=== PATIENT | male | born 1985 | race Caucasian/White ===

== ENCOUNTER 2017-08-21 18:08 | Emergency (ER) | payer OTHER ==
[~2017-08-21] VITALS: Ht 157.5 cm; Wt 67.3 kg
[2017-08-21 18:37] LABS: GLUCOSE,POINT OF CARE 389 MG/DL (70-110)
[2017-08-21] MEDS ORDERED: QUET300T2 PO (18:39)
[2017-08-21] MEDS ORDERED: ONDANSETRON HCL 4 MG/2 ML VIAL IVP ONE (19:00)
[2017-08-21] MEDS ORDERED: SODIUM CHLORIDE 0.9% 2,000 ML IV ONE (19:00)
[2017-08-21] MEDS ORDERED: MORPHINE SULFATE 4 MG/ML SYRINGE IVP ONE (19:30)
[2017-08-21 19:44] LABS: BASOPHILS % (AUTO) 0.7 % (0.0-2.0); EOSINOPHILS % (AUTO) 0.1 % (1.0-6.0); HEMATOCRIT 40.1 % (41-53); HEMOGLOBIN 13.9 g/dL (13.5-17.5); LYMPHOCYTES # (AUTO) 2.2 K/uL (1.0-4.8); LYMPHOCYTES % (AUTO) 46.1 % (22.0-44.0); MEAN CORPUSCULAR HEMOGLOBIN 28.1 pg (26.0-34.0); MEAN CORPUSCULAR HGB CONC 34.6 G/dL (31.0-37.0); MEAN CORPUSCULAR VOLUME 81 fL (80-100); MONOCYTES # (AUTO) 0.2 K/uL (0.1-1.0); MONOCYTES % (AUTO) 5.1 % (2.0-9.0); NEUTROPHILS # (AUTO) 2.2 K/uL (1.8-7.7); PLATELET COUNT (AUTO) 296 K/uL (150-450); RED BLOOD CELL COUNT(AUTO) 4.93 MIL/uL (4.50-5.90); RED CELL DISTRIBUTION WIDTH 17.6 % (11.5-14.5); WHITE BLOOD COUNT (AUTO) 4.7 K/uL (4.5-11.0)
[2017-08-21 19:50] LABS: ANION GAP 13 mmol/L (8-16); CALCIUM, TOTAL 8.6 mg/dL (8.8-10.5); CARBON DIOXIDE 26 mmol/L (22-29); CHLORIDE 100 mmol/L (98-107); CREATININE 0.98 mg/dL (0.60-1.30); GLOMERULAR FILTR. RATE CALC > 60 mL/min (>60); POTASSIUM 3.7 mmol/L (3.5-5.1); SODIUM SERUM 139 mmol/L (136-145); UREA NITROGEN, BLOOD 4 mg/dL (7-18)
[2017-08-21 19:56] LABS: ALANINE AMINOTRANSFERASE 49 U/L (12-78); ALBUMIN 3.8 g/dL (3.4-5.0); ASPARTATE AMINOTRANSFERASE 31 U/L (15-37); BILIRUBIN,TOTAL 0.6 mg/dL (0.1-1.0); TOTAL PROTEIN, SERUM 7.7 g/dL (6.4-8.2)
[2017-08-21 20:00] LABS: RBC MORPHOLOGY COMMENT ABNORMAL RBC MORPH
[2017-08-21 20:21] LABS: VALPROIC ACID < 3 mcg/mL (50-100)
[2017-08-21] MEDS ORDERED: ACETAMINOPHEN 500 MG TABLET PO ONE ×2 (21:30)
[2017-08-21 22:02] VITALS: BP 125/75
== END 2017-08-21 22:33 | disposition home or self-care (01) ==
LOC: EMS 18:10
DX: F10.229 Alcohol dependence with intoxication, unspecified (principal); F15.10 Other stimulant abuse, uncomplicated; F13.20 Sedative, hypnotic or anxiolytic dependence, uncomplicated; R10.9 Unspecified abdominal pain; E11.9 Type 2 diabetes mellitus without complications; F17.210 Nicotine dependence, cigarettes, uncomplicated; Z76.5 Malingerer [conscious simulation]; Z91.14 Patient's other noncompliance with medication regimen; Y90.8 Blood alcohol level of 240 mg/100 ml or more
CPT/HCPCS: 36415; 70450; 80053; 80156; 80164; 80185; 80307; 82962; 83690; 85025; 93005; 96361; 96374; 96375; 99285; G0480; J2270; J2405; J7030

== ENCOUNTER 2019-03-28 15:41 | Emergency (ER) | payer OTHER ==
[~2019-03-28] VITALS: Ht 175.3 cm; Wt 70.5 kg
[~2019-03-28 15:41] MED LIST: QUET300T2 PO
[2019-03-28] MEDS ORDERED: PRAZ1 PO (16:43)
[2019-03-28] MEDS ORDERED: DIVA125T32 PO (16:43)
[2019-03-28] MEDS ORDERED: SODIUM CHLORIDE 0.9% 1,000 ML IV ONE (17:15)
[2019-03-28 17:28] LABS: BASOPHILS % (AUTO) 0.2 % (0.0-2.0); EOSINOPHILS % (AUTO) 0.2 % (1.0-6.0); HEMATOCRIT 46.9 % (41-53); HEMOGLOBIN 15.7 g/dL (13.5-17.5); LYMPHOCYTES # (AUTO) 1.3 K/uL (1.0-4.8); LYMPHOCYTES % (AUTO) 11.4 % (22.0-44.0); MEAN CORPUSCULAR HEMOGLOBIN 28.2 pg (26.0-34.0); MEAN CORPUSCULAR HGB CONC 33.5 G/dL (31.0-37.0); MEAN CORPUSCULAR VOLUME 84 fL (80-100); MONOCYTES # (AUTO) 0.3 K/uL (0.1-1.0); MONOCYTES % (AUTO) 2.5 % (2.0-9.0); NEUTROPHILS # (AUTO) 9.7 K/uL (1.8-7.7); PLATELET COUNT (AUTO) 290 K/uL (150-450); RED BLOOD CELL COUNT(AUTO) 5.56 MIL/uL (4.50-5.90); RED CELL DISTRIBUTION WIDTH 15.5 % (11.5-14.5)
[2019-03-28 17:30] LABS: NEUTROPHILS % (AUTO) 85.7 % (40.0-70.0)
[2019-03-28] MEDS ORDERED: KETOROLAC TROMETHAMINE 30 MG/ML VIAL IVP ONE ×2 (17:30→22:15)
[2019-03-28] MEDS ORDERED: ONDANSETRON HCL 4 MG/2 ML VIAL IVP ONE ×2 (17:30→22:15)
[2019-03-28] MEDS ORDERED: LORazepam 2 MG TABLET PO ONE (17:45)
[2019-03-28 17:54] LABS: ANION GAP 14 mmol/L (8-16); CALCIUM, TOTAL 8.5 mg/dL (8.8-10.5); CARBON DIOXIDE 18 mmol/L (22-29); CHLORIDE 111 mmol/L (98-107); CREATININE 0.84 mg/dL (0.60-1.30); GLOMERULAR FILTR. RATE CALC > 60 mL/min (>60); GLUCOSE,RANDOM 152 mg/dL (70-110); POTASSIUM 3.8 mmol/L (3.5-5.1); SODIUM SERUM 143 mmol/L (136-145); UREA NITROGEN, BLOOD 9 mg/dL (7-18)
[2019-03-28 18:00] LABS: ALANINE AMINOTRANSFERASE 67 U/L (12-78); ALBUMIN 3.6 g/dL (3.4-5.0); ALKALINE PHOSPHATASE 198 U/L (46-116); ASPARTATE AMINOTRANSFERASE 54 U/L (15-37); BILIRUBIN,TOTAL 0.3 mg/dL (0.1-1.0); LIPASE 29 U/L (73-393); TOTAL PROTEIN, SERUM 7.6 g/dL (6.4-8.2)
[2019-03-28] MEDS ORDERED: MORPHINE SULFATE 4 MG/ML SYRINGE IVP ONE (20:15)
[2019-03-28] MEDS ORDERED: OLANZapine 5 MG RAPDIS TABLET PO PRN (20:30)
[2019-03-28] MEDS ORDERED: ZOLPIDEM TARTRATE 10 MG TABLET PO PRN (20:30)
[2019-03-28] MEDS ORDERED: ACETAMINOPHEN 325 MG TABLET PO PRN (20:30)
[2019-03-28] MEDS ORDERED: LORazepam 2 MG TABLET PO PRN (20:30)
[2019-03-28] MEDS ORDERED: LORazepam 2 MG/ML VIAL IVP ONE (22:15)
[2019-03-28] MEDS ORDERED: MAG HYDROX/AL HYDROX/SIMETH ES 30 ML SUSPENSION UDCUP PO ONE (22:15)
[2019-03-28] MEDS ORDERED: FAMOTIDINE 40 MG in SODIUM CHLORIDE 0.9% 100 ML IV ONE (22:15)
[2019-03-28] MEDS ORDERED: HYDROmorphone 2 MG/ML SYRINGE IVP ONE (22:15)
[2019-03-28 22:33] LABS: ANION GAP 15 mmol/L (8-16); CALCIUM, TOTAL 8.3 mg/dL (8.8-10.5); CARBON DIOXIDE 22 mmol/L (22-29); CHLORIDE 106 mmol/L (98-107); CREATININE 1.04 mg/dL (0.60-1.30); GLOMERULAR FILTR. RATE CALC > 60 mL/min (>60); GLUCOSE,RANDOM 329 mg/dL (70-110); POTASSIUM 3.8 mmol/L (3.5-5.1); SODIUM SERUM 143 mmol/L (136-145); UREA NITROGEN, BLOOD 10 mg/dL (7-18)
[2019-03-28 22:35] LABS: LIPASE 33 U/L (73-393)
[2019-03-29 00:30] LABS: GLUCOSE,POINT OF CARE 218 MG/DL (70-110)
[2019-03-29 00:30] LABS: GLUCOSE,POINT OF CARE 241 MG/DL (70-110)
[2019-03-29 00:59] LABS: GLUCOSE,POINT OF CARE 213 MG/DL (70-110)
[2019-03-29 02:19] LABS: GLUCOSE,POINT OF CARE 189 MG/DL (70-110)
[2019-03-29 04:24] LABS: APPEARANCE,URINE CLOUDY (CLEAR); BILIRUBIN,URINE NEGATIVE (NEGATIVE); GLUCOSE, URINE (UA) 500 mg/dL (NEGATIVE); KETONES,URINE NEGATIVE (NEGATIVE); LEUKOCYTE ESTERASE ,URINE SMALL (NEGATIVE); NITRATE,URINE NEGATIVE (NEGATIVE); OCCULT BLOOD,URINE NEGATIVE (NEGATIVE); PROTEIN,URINE TRACE (NEGATIVE); UROBILINOGEN,URINE 0.2 mg/dL (<=1.0)
[2019-03-29 04:29] LABS: AMPHET/METH SCREEN,URINE NEGATIVE (NEGATIVE); BARBITURATE SCREEN, URINE NEGATIVE (NEGATIVE); BENZODIAZEPINES SCREEN,URINE NEGATIVE (NEGATIVE); CANNABINOID SCREEN,URINE NEGATIVE (NEGATIVE); COCAINE SCREEN,URINE NEGATIVE (NEGATIVE); METHADONE SCREEN, URINE NEGATIVE (NEGATIVE); OPIATE SCREEN,URINE POSITIVE (NEGATIVE); PHENCYCLIDINE SCREEN,URINE NEGATIVE (NEGATIVE)
[2019-03-29 04:41] LABS: BACTERIA,URINE None Seen /HPF (None Seen); RBC,URINE 0-2 /HPF (0-2); WBC,URINE 26-50 /HPF (0-5)
[2019-03-29 04:42] LABS: MUCUS,URINE Rare LPF (None Seen); SQUAMOUS EPITHELIAL CELL,UR Rare /LPF (None Seen)
[2019-03-29] MEDS ORDERED: LORazepam 2 MG TABLET PO PRN ×2 (07:00→09:30)
[2019-03-29 07:56] LABS: BASOPHILS % (AUTO) 0.4 % (0.0-2.0); EOSINOPHILS % (AUTO) 1.6 % (1.0-6.0); HEMOGLOBIN 14.4 g/dL (13.5-17.5); LYMPHOCYTES # (AUTO) 1.9 K/uL (1.0-4.8); LYMPHOCYTES % (AUTO) 22.9 % (22.0-44.0); MEAN CORPUSCULAR HEMOGLOBIN 28.2 pg (26.0-34.0); MEAN CORPUSCULAR HGB CONC 33.4 G/dL (31.0-37.0); MEAN CORPUSCULAR VOLUME 84 fL (80-100); MONOCYTES # (AUTO) 0.5 K/uL (0.1-1.0); MONOCYTES % (AUTO) 6.4 % (2.0-9.0); NEUTROPHILS # (AUTO) 5.8 K/uL (1.8-7.7); NEUTROPHILS % (AUTO) 68.7 % (40.0-70.0); PLATELET COUNT (AUTO) 261 K/uL (150-450); RED CELL DISTRIBUTION WIDTH 15.6 % (11.5-14.5)
[2019-03-29 08:30] LABS: HEMOGLOBIN A1C 8.8 % (4.5-6.2)
[2019-03-29 08:42] LABS: ALANINE AMINOTRANSFERASE 126 U/L (12-78); ALBUMIN 3.2 g/dL (3.4-5.0); ALKALINE PHOSPHATASE 232 U/L (46-116); ANION GAP 12 mmol/L (8-16); ASPARTATE AMINOTRANSFERASE 132 U/L (15-37); BILIRUBIN,TOTAL 0.6 mg/dL (0.1-1.0); CALCIUM, TOTAL 8.5 mg/dL (8.8-10.5); CARBON DIOXIDE 21 mmol/L (22-29); CHLORIDE 107 mmol/L (98-107); CHOL/HDL RATIO 1.7 (4.2-7.3); CHOLESTEROL 109 mg/dL (131-200); CREATININE 0.85 mg/dL (0.60-1.30); GLOMERULAR FILTR. RATE CALC > 60 mL/min (>60); GLUCOSE,RANDOM 100 mg/dL (70-110); HDL CHOLESTEROL 66 mg/dL (40-60); LDL CHOL (CALC.) 20 mg/dL (0-130); POTASSIUM 3.5 mmol/L (3.5-5.1); SODIUM SERUM 140 mmol/L (136-145); THYROID STIMULATING HORMONE 1.24 uIU/mL (0.36-3.74); TOTAL PROTEIN, SERUM 6.9 g/dL (6.4-8.2); TRIGLYCERIDES 114 mg/dL (15-150); UREA NITROGEN, BLOOD 11 mg/dL (7-18)
[2019-03-29] MEDS ORDERED: LORazepam 2 MG TABLET PO SCH (09:00)
[2019-03-29] MEDS ORDERED: THIAMINE HCL 100 MG TABLET PO SCH (09:30)
[2019-03-29] MEDS ORDERED: GuaiFENesin/D-METHORPHAN [SUGAR-FREE] 200-20MG/10 ML SYRUP UDCUP PO PRN (09:30)
[2019-03-29] MEDS ORDERED: LOPERAMIDE HCL 2 MG CAPSULE PO PRN (09:30)
[2019-03-29] MEDS ORDERED: FOLIC ACID 1 MG TABLET PO SCH (09:30)
[2019-03-29] MEDS ORDERED: HydrOXYzine PAMOATE 50 MG CAPSULE PO PRN (09:30)
[2019-03-29] MEDS ORDERED: CYANOCOBALAMIN 1,000 MCG/ML VIAL IM ONE (09:30)
[2019-03-29 10:48] LABS: GLUCOSE,POINT OF CARE 119 MG/DL (70-110)
[2019-03-29] MEDS ORDERED: ACETAMINOPHEN 325 MG TABLET PO PRN (11:15)
[2019-03-29] MEDS ORDERED: IBUPROFEN 400 MG TABLET PO PRN (11:15)
[2019-03-29 11:45] LABS: GLUCOSE,POINT OF CARE 118 MG/DL (70-110)
[2019-03-29 12:38] VITALS: BP 129/87
[2019-03-29] MEDS ORDERED: QUEtiapine FUMARATE 300 MG TABLET PO SCH (21:00)
[2019-03-30] MEDS ORDERED: LORazepam 2 MG TABLET PO PRN (07:00)
[2019-03-30] MEDS ORDERED: LORazepam 2 MG TABLET PO SCH (09:00)
[2019-03-30] MEDS ORDERED: BuPROPion HCL XL 150 MG ER TABLET PO SCH (09:00)
[2019-03-30] MEDS ORDERED: MULTIVITAMINS WITH MINERALS, THERAPEUTIC TABLET PO SCH (09:00)
[2019-03-31] MEDS ORDERED: LORazepam 1 MG TABLET PO PRN (07:00)
[2019-03-31] MEDS ORDERED: LORazepam 1 MG TABLET PO SCH (09:00)
[2019-04-01] MEDS ORDERED: LORazepam 1 MG TABLET PO PRN ×2 (07:00)
[2019-04-01] MEDS ORDERED: LORazepam 1 MG TABLET PO SCH (09:00)
[2019-04-02] MEDS ORDERED: LORazepam 1 MG TABLET PO PRN (07:00)
== END 2019-03-29 13:00 | disposition left against medical advice (07) ==
LOC: EMS 15:42
DX: F33.2 Major depressive disorder, recurrent severe without psychotic features (principal); F10.229 Alcohol dependence with intoxication, unspecified; K86.1 Other chronic pancreatitis; E10.9 Type 1 diabetes mellitus without complications; F20.9 Schizophrenia, unspecified; F17.210 Nicotine dependence, cigarettes, uncomplicated; Y90.8 Blood alcohol level of 240 mg/100 ml or more
CPT/HCPCS: 36415; 80048; 80053; 80061; 80307; 81001; 82962; 83036; 83690; 84443; 85025; 87077; 87086; 87186; 96361; 96372; 96374; 96375; 96376; 99284; G0480; J1170; J1885; J2060; J2270; J2405; J3420; J3490; J7030; J7050

== ENCOUNTER 2019-03-29 23:41 | Emergency (ER) | payer OTHER ==
[~2019-03-29] VITALS: Ht 157.5 cm; Wt 64.5 kg
[~2019-03-29 23:41] MED LIST changes: +DIVA125T32 PO; +PRAZ1 PO
[2019-03-29 23:59] LABS: GLUCOSE,POINT OF CARE 176 MG/DL (70-110)
[2019-03-30 01:15] LABS: BASOPHILS % (AUTO) 0.4 % (0.0-2.0); EOSINOPHILS % (AUTO) 1.4 % (1.0-6.0); HEMATOCRIT 47.4 % (41-53); HEMOGLOBIN 16.1 g/dL (13.5-17.5); LYMPHOCYTES # (AUTO) 2.1 K/uL (1.0-4.8); LYMPHOCYTES % (AUTO) 39.1 % (22.0-44.0); MEAN CORPUSCULAR HEMOGLOBIN 28.5 pg (26.0-34.0); MEAN CORPUSCULAR VOLUME 84 fL (80-100); MONOCYTES # (AUTO) 0.3 K/uL (0.1-1.0); MONOCYTES % (AUTO) 5.1 % (2.0-9.0); NEUTROPHILS # (AUTO) 2.8 K/uL (1.8-7.7); PLATELET COUNT (AUTO) 242 K/uL (150-450); RED BLOOD CELL COUNT(AUTO) 5.66 MIL/uL (4.50-5.90); RED CELL DISTRIBUTION WIDTH 15.5 % (11.5-14.5)
[2019-03-30 01:16] LABS: ANION GAP 13 mmol/L (8-16); CALCIUM, TOTAL 8.7 mg/dL (8.8-10.5); CARBON DIOXIDE 23 mmol/L (22-29); CHLORIDE 109 mmol/L (98-107); CREATININE 0.81 mg/dL (0.60-1.30); GLOMERULAR FILTR. RATE CALC > 60 mL/min (>60); GLUCOSE,RANDOM 185 mg/dL (70-110); POTASSIUM 3.7 mmol/L (3.5-5.1); SODIUM SERUM 145 mmol/L (136-145); UREA NITROGEN, BLOOD 9 mg/dL (7-18)
[2019-03-30 01:19] LABS: GLUCOSE,POINT OF CARE 164 MG/DL (70-110)
[2019-03-30 01:22] LABS: ALANINE AMINOTRANSFERASE 103 U/L (12-78); ALBUMIN 3.6 g/dL (3.4-5.0); ALKALINE PHOSPHATASE 243 U/L (46-116); ASPARTATE AMINOTRANSFERASE 63 U/L (15-37); BILIRUBIN,TOTAL 0.5 mg/dL (0.1-1.0); TOTAL PROTEIN, SERUM 7.8 g/dL (6.4-8.2)
[2019-03-30] MEDS ORDERED: FAMOTIDINE 20 MG TABLET PO ONE (07:45)
[2019-03-30 07:48] LABS: AMPHET/METH SCREEN,URINE NEGATIVE (NEGATIVE); BARBITURATE SCREEN, URINE NEGATIVE (NEGATIVE); BENZODIAZEPINES SCREEN,URINE NEGATIVE (NEGATIVE); CANNABINOID SCREEN,URINE NEGATIVE (NEGATIVE); COCAINE SCREEN,URINE NEGATIVE (NEGATIVE); METHADONE SCREEN, URINE NEGATIVE (NEGATIVE); OPIATE SCREEN,URINE NEGATIVE (NEGATIVE); PHENCYCLIDINE SCREEN,URINE NEGATIVE (NEGATIVE)
[2019-03-30] MEDS ORDERED: KETOROLAC TROMETHAMINE 60 MG/2 ML VIAL IM ONE (08:15)
[2019-03-30 08:36] VITALS: BP 124/69
== END 2019-03-30 08:38 | disposition home or self-care (01) ==
LOC: EMS 23:44
DX: F32.9 Major depressive disorder, single episode, unspecified (principal); F10.129 Alcohol abuse with intoxication, unspecified; F31.9 Bipolar disorder, unspecified; F20.9 Schizophrenia, unspecified; E11.9 Type 2 diabetes mellitus without complications; F17.210 Nicotine dependence, cigarettes, uncomplicated; Z90.49 Acquired absence of other specified parts of digestive tract; Y90.8 Blood alcohol level of 240 mg/100 ml or more
CPT/HCPCS: 36415; 80053; 80307; 82962; 85025; 96372; 99284; G0480; J1885

== ENCOUNTER 2019-04-22 10:50 | Inpatient (IN) | payer OTHER ==
[~2019-04-22] VITALS: Ht 160 cm; Wt 61.4 kg
[2019-04-22 11:03] LABS: GLUCOSE,POINT OF CARE 439 MG/DL (70-110)
[2019-04-22] MEDS ORDERED: INSLAN SQ (11:09)
[2019-04-22] MEDS ORDERED: INSNOV SQ (11:09)
[2019-04-22] MEDS ORDERED: SODIUM CHLORIDE 0.9% 1,000 ML IV ONE (11:45)
[2019-04-22 12:01] LABS: BASOPHILS % (AUTO) 0.6 % (0.0-2.0); EOSINOPHILS % (AUTO) 0.2 % (1.0-6.0); HEMATOCRIT 41.8 % (41-53); HEMOGLOBIN 14.1 g/dL (13.5-17.5); LYMPHOCYTES # (AUTO) 1.6 K/uL (1.0-4.8); MEAN CORPUSCULAR HEMOGLOBIN 28.3 pg (26.0-34.0); MEAN CORPUSCULAR HGB CONC 33.6 G/dL (31.0-37.0); MEAN CORPUSCULAR VOLUME 84 fL (80-100); MONOCYTES # (AUTO) 0.2 K/uL (0.1-1.0); MONOCYTES % (AUTO) 4.7 % (2.0-9.0); NEUTROPHILS # (AUTO) 2.5 K/uL (1.8-7.7); NEUTROPHILS % (AUTO) 58.5 % (40.0-70.0); PLATELET COUNT (AUTO) 140 K/uL (150-450); RED BLOOD CELL COUNT(AUTO) 4.97 MIL/uL (4.50-5.90); RED CELL DISTRIBUTION WIDTH 14.7 % (11.5-14.5)
[2019-04-22 12:13] LABS: PROTHROMBIN TIME 10.2 SEC (9.4-11.6)
[2019-04-22 12:25] LABS: ALANINE AMINOTRANSFERASE 172 U/L (12-78); ALBUMIN 3.6 g/dL (3.4-5.0); ALKALINE PHOSPHATASE 537 U/L (46-116); ANION GAP 12 mmol/L (8-16); ASPARTATE AMINOTRANSFERASE 272 U/L (15-37); BILIRUBIN,TOTAL 0.7 mg/dL (0.1-1.0); CALCIUM, TOTAL 8.7 mg/dL (8.8-10.5); CARBON DIOXIDE 30 mmol/L (22-29); CHLORIDE 93 mmol/L (98-107); CREATININE 1.04 mg/dL (0.60-1.30); GLOMERULAR FILTR. RATE CALC > 60 mL/min (>60); GLUCOSE,RANDOM 382 mg/dL (70-110); LIPASE 66 U/L (73-393); SODIUM SERUM 135 mmol/L (136-145); TOTAL PROTEIN, SERUM 7.3 g/dL (6.4-8.2); UREA NITROGEN, BLOOD 4 mg/dL (7-18)
[2019-04-22 12:35] LABS: POTASSIUM 2.7 mmol/L (3.5-5.1)
[2019-04-22 12:35] LABS: ABG A-A DIFF O2 17.3 mmHg (10-20.0); ABG BASE EXCESS 1.3 mmol/L (-2.0-3.0); ABG CARBOXYHEMOGLOBIN 0.9 % (0.0-1.5); ABG HCO3 26.1 mmol/L (22.0-26.0); ABG METHEMOGLOBIN 0.3 % (0.0-1.5); ABG OXYGEN CONTENT 19.2 mL/dL (15.0-23.0); ABG OXYGEN SATURATION 97.5 % (95.0-98.0); ABG OXYHEMOGLOBIN 96.3 % (94.0-100.0); ABG PCO2 33 mmHg (35-45); ABG PH 7.492 (7.350-7.450); ABG TOTAL HEMOGLOBIN 14.1 G/dL (12.0-18.0); PO2, ARTERIAL BG 93.3 mmHg (92.0-100.0); SOURCE, BLOOD GAS ARTERIAL; TEMPERATURE, FAHRENHEIT, BG 97.5 FAHREN (96.0-98.6)
[2019-04-22 12:36] LABS: SITE, BLOOD GAS RT RADIAL
[2019-04-22] MEDS: POTASSIUM CHL 10 MEQ/WATER 50 ML IV SCH ×4 (12:52→16:55)
[2019-04-22] MEDS ORDERED: ONDANSETRON HCL 4 MG/2 ML VIAL IVP ONE (13:15)
[2019-04-22] MEDS ORDERED: KETOROLAC TROMETHAMINE 30 MG/ML VIAL IVP ONE (13:15)
[2019-04-22 13:35] LABS: APPEARANCE,URINE CLEAR (CLEAR); BILIRUBIN,URINE NEGATIVE (NEGATIVE); GLUCOSE, URINE (UA) >=1000 mg/dL (NEGATIVE); KETONES,URINE 15 mg/dL (NEGATIVE); LEUKOCYTE ESTERASE ,URINE NEGATIVE (NEGATIVE); NITRATE,URINE NEGATIVE (NEGATIVE); OCCULT BLOOD,URINE NEGATIVE (NEGATIVE); PH,URINE 7.5 (5.0-8.0); PROTEIN,URINE NEGATIVE (NEGATIVE)
[2019-04-22 13:40] LABS: AMPHET/METH SCREEN,URINE NEGATIVE (NEGATIVE); BARBITURATE SCREEN, URINE NEGATIVE (NEGATIVE); BENZODIAZEPINES SCREEN,URINE NEGATIVE (NEGATIVE); CANNABINOID SCREEN,URINE NEGATIVE (NEGATIVE); COCAINE SCREEN,URINE NEGATIVE (NEGATIVE); METHADONE SCREEN, URINE NEGATIVE (NEGATIVE); OPIATE SCREEN,URINE NEGATIVE (NEGATIVE)
[2019-04-22 13:41] LABS: PHENCYCLIDINE SCREEN,URINE NEGATIVE (NEGATIVE)
[2019-04-22 13:45] LABS: BACTERIA,URINE None Seen /HPF (None Seen); RBC,URINE None Seen /HPF (0-2); SQUAMOUS EPITHELIAL CELL,UR Rare /LPF (None Seen); WBC,URINE 0-2 /HPF (0-5)
[2019-04-22] MEDS ORDERED: INSULIN REGULAR, HUMAN 100 UNITS/ML IVP ONE (13:45)
[2019-04-22] MEDS ORDERED: 0.9% SODIUM CHLORIDE 10 ML SYRINGE IVP PRN (13:45)
[2019-04-22] MEDS ORDERED: ACETAMINOPHEN 325 MG TABLET PO PRN ×2 (13:45→16:00)
[2019-04-22] MEDS ORDERED: LORazepam 2 MG/ML VIAL IVP ONE (13:45)
[2019-04-22] MEDS ORDERED: ONDANSETRON HCL 4 MG/2 ML VIAL IVP PRN ×3 (13:45→16:15)
[2019-04-22] MEDS ORDERED: SODIUM CHLORIDE 0.9% 250 ML IV ONE (14:56)
[2019-04-22 15:14] LABS: GLUCOSE,POINT OF CARE 264 MG/DL (70-110)
[2019-04-22] MEDS ORDERED: IOVERSOL 350 MG/ML 100 ML VIAL ONE (15:48)
[2019-04-22] MEDS ORDERED: MAGNESIUM SULFATE 2 GM, MVI, ADULT NO.1 WITH VIT K 10 ML, THIAMINE HCL 100 MG, FOLIC AC... IV ONE ×5 (16:00)
[2019-04-22] MEDS ORDERED: MAGNESIUM HYDROXIDE SUSPENSION 30 ML UDCUP PO PRN (16:00)
[2019-04-22] MEDS ORDERED: BISACODYL 10 MG RECTAL RECTAL SUPPOSITORY PR PRN (16:00)
[2019-04-22] MEDS ORDERED: ZOLPIDEM TARTRATE 5 MG TABLET PO PRN (16:00)
[2019-04-22] MEDS ORDERED: DEXTROSE 50%-WATER 25 GM/50 ML SYRINGE IVP PRN (16:15)
[2019-04-22] MEDS: HEPARIN SODIUM,PORCINE 5,000 UNITS/ML VIAL SQ SCH ×2 (18:42→23:47)
[2019-04-22] MEDS: INSULIN LISPRO 100 UNITS/ML SQ PRN ×2 (18:44→22:20)
[2019-04-22 18:46] VITALS: BP 110/76
[2019-04-22] MEDS: MORPHINE SULFATE 2 MG/ML SYRINGE IVP PRN ×2 (18:47→23:48)
[2019-04-22 20:59] LABS: GLUCOMETER DEV NAME(LOC) 5S.1; GLUCOSE,POINT OF CARE 183 MG/DL (70-110)
[2019-04-22] MEDS ORDERED: POTASSIUM CHLORIDE 20 MEQ ER TABLET PO PRN (21:30)
[2019-04-22] MEDS: INSULIN GLARGINE,HUM.REC.ANLOG 100 UNITS/ML SQ SCH (22:19)
[2019-04-22] MEDS: QUEtiapine FUMARATE 300 MG TABLET PO SCH (22:20)
[2019-04-22] MEDS: DOCUSATE SODIUM 100 MG CAPSULE PO SCH (22:20)
[2019-04-22] MEDS: POTASSIUM CHL 10 MEQ/WATER 50 ML IV PRN ×2 (22:21→23:48)
[2019-04-22 23:02] VITALS: BP 135/83
[2019-04-23] MEDS: POTASSIUM CHL 10 MEQ/WATER 50 ML IV PRN ×6 (01:28→13:15)
[2019-04-23 02:39] LABS: GLUCOMETER DEV NAME(LOC) 5S.1; GLUCOSE,POINT OF CARE 283 MG/DL (70-110)
[2019-04-23] MEDS: HYDROCODONE/ACETAMINOPHEN 5-325 MG TABLET PO PRN ×3 (02:50→16:17)
[2019-04-23 03:55] VITALS: BP 139/88
[2019-04-23] MEDS: MORPHINE SULFATE 2 MG/ML SYRINGE IVP PRN ×4 (04:05→22:29)
[2019-04-23 05:30] LABS: BASOPHILS % (AUTO) 0.8 % (0.0-2.0); EOSINOPHILS % (AUTO) 0.6 % (1.0-6.0); HEMATOCRIT 35.3 % (41-53); HEMOGLOBIN 11.9 g/dL (13.5-17.5); LYMPHOCYTES # (AUTO) 1.9 K/uL (1.0-4.8); LYMPHOCYTES % (AUTO) 31.3 % (22.0-44.0); MEAN CORPUSCULAR HEMOGLOBIN 28.5 pg (26.0-34.0); MEAN CORPUSCULAR HGB CONC 33.7 G/dL (31.0-37.0); MEAN CORPUSCULAR VOLUME 85 fL (80-100); MONOCYTES # (AUTO) 0.3 K/uL (0.1-1.0); MONOCYTES % (AUTO) 4.4 % (2.0-9.0); NEUTROPHILS # (AUTO) 3.7 K/uL (1.8-7.7); NEUTROPHILS % (AUTO) 62.9 % (40.0-70.0); PLATELET COUNT (AUTO) 110 K/uL (150-450); RED BLOOD CELL COUNT(AUTO) 4.16 MIL/uL (4.50-5.90); RED CELL DISTRIBUTION WIDTH 14.7 % (11.5-14.5)
[2019-04-23 05:47] LABS: ALANINE AMINOTRANSFERASE 132 U/L (12-78); ALKALINE PHOSPHATASE 429 U/L (46-116); ANION GAP 11 mmol/L (8-16); ASPARTATE AMINOTRANSFERASE 159 U/L (15-37); CALCIUM, TOTAL 8.4 mg/dL (8.8-10.5); CARBON DIOXIDE 28 mmol/L (22-29); CHLORIDE 97 mmol/L (98-107); CREATININE 0.86 mg/dL (0.60-1.30); GLOMERULAR FILTR. RATE CALC > 60 mL/min (>60); GLUCOSE,RANDOM 83 mg/dL (70-110); SODIUM SERUM 136 mmol/L (136-145); UREA NITROGEN, BLOOD 3 mg/dL (7-18)
[2019-04-23 06:23] LABS: POTASSIUM 2.8 mmol/L (3.5-5.1)
[2019-04-23 07:41] VITALS: BP 150/91
[2019-04-23] MEDS: PANTOPRAZOLE SODIUM 40 MG DR TABLET PO SCH (08:00)
[2019-04-23] MEDS: DOCUSATE SODIUM 100 MG CAPSULE PO SCH ×2 (08:01→19:58)
[2019-04-23] MEDS: HEPARIN SODIUM,PORCINE 5,000 UNITS/ML VIAL SQ SCH ×2 (08:01→16:18)
[2019-04-23] MEDS: QUEtiapine FUMARATE 300 MG TABLET PO SCH ×2 (08:01→19:58)
[2019-04-23] MEDS: PRAZOSIN HCL 1 MG CAPSULE PO SCH (08:01)
[2019-04-23] MEDS ORDERED: MAGNESIUM SULFATE 2 GM, MVI, ADULT NO.1 WITH VIT K 10 ML, THIAMINE HCL 100 MG, FOLIC AC... IV ONE ×5 (10:45)
[2019-04-23] MEDS: LORazepam 2 MG/ML VIAL IM PRN (10:55)
[2019-04-23 11:16] VITALS: BP 129/97
[2019-04-23 11:21] LABS: GLUCOMETER DEV NAME(LOC) 5N.1; GLUCOSE,POINT OF CARE 68 MG/DL (70-110)
[2019-04-23 11:21] LABS: GLUCOMETER DEV NAME(LOC) 5N.1; GLUCOSE,POINT OF CARE 77 MG/DL (70-110)
[2019-04-23 12:19] LABS: GLUCOMETER DEV NAME(LOC) 5S.1; GLUCOSE,POINT OF CARE 149 MG/DL (70-110)
[2019-04-23 15:07] VITALS: BP 146/95
[2019-04-23 19:28] VITALS: BP 134/82
[2019-04-23] MEDS: INSULIN GLARGINE,HUM.REC.ANLOG 100 UNITS/ML SQ SCH (20:40)
[2019-04-23 20:54] LABS: GLUCOMETER DEV NAME(LOC) 5N.2; GLUCOSE,POINT OF CARE 84 MG/DL (70-110)
[2019-04-24 00:02] VITALS: BP 141/91
[2019-04-24] MEDS: MORPHINE SULFATE 2 MG/ML SYRINGE IVP PRN ×2 (02:31→06:55)
[2019-04-24 04:40] VITALS: BP 136/78
[2019-04-24 05:29] LABS: BASOPHILS % (AUTO) 0.6 % (0.0-2.0); EOSINOPHILS % (AUTO) 1.5 % (1.0-6.0); HEMATOCRIT 36.6 % (41-53); HEMOGLOBIN 12.4 g/dL (13.5-17.5); LYMPHOCYTES # (AUTO) 1.2 K/uL (1.0-4.8); LYMPHOCYTES % (AUTO) 25.4 % (22.0-44.0); MEAN CORPUSCULAR HEMOGLOBIN 28.8 pg (26.0-34.0); MEAN CORPUSCULAR HGB CONC 33.9 G/dL (31.0-37.0); MEAN CORPUSCULAR VOLUME 85 fL (80-100); MONOCYTES # (AUTO) 0.3 K/uL (0.1-1.0); MONOCYTES % (AUTO) 6.4 % (2.0-9.0); NEUTROPHILS # (AUTO) 3.1 K/uL (1.8-7.7); NEUTROPHILS % (AUTO) 66.1 % (40.0-70.0); PLATELET COUNT (AUTO) 137 K/uL (150-450); RED BLOOD CELL COUNT(AUTO) 4.32 MIL/uL (4.50-5.90); RED CELL DISTRIBUTION WIDTH 14.9 % (11.5-14.5)
[2019-04-24] MEDS: HYDROCODONE/ACETAMINOPHEN 5-325 MG TABLET PO PRN (05:39)
[2019-04-24 06:45] LABS: GLUCOMETER DEV NAME(LOC) 5N.1; GLUCOSE,POINT OF CARE 126 MG/DL (70-110)
[2019-04-24 07:49] LABS: GLUCOMETER DEV NAME(LOC) 5S.1; GLUCOSE,POINT OF CARE 189 MG/DL (70-110)
[2019-04-24 07:54] VITALS: BP 135/95
[2019-04-24] MEDS: HEPARIN SODIUM,PORCINE 5,000 UNITS/ML VIAL SQ SCH ×2 (08:25)
[2019-04-24] MEDS: DOCUSATE SODIUM 100 MG CAPSULE PO SCH (08:26)
[2019-04-24] MEDS: PRAZOSIN HCL 1 MG CAPSULE PO SCH (08:26)
[2019-04-24] MEDS: PANTOPRAZOLE SODIUM 40 MG DR TABLET PO SCH (08:27)
[2019-04-24] MEDS: QUEtiapine FUMARATE 300 MG TABLET PO SCH (08:27)
[2019-04-24] MEDS: LORazepam 2 MG/ML VIAL IM PRN (09:15)
== END 2019-04-24 11:00 | disposition home or self-care (01) | DRG 241 ==
LOC: EMS 10:54 → 5N 16:03
PROVIDERS: ADMIT Internal Medicine; ATTEND Internal Medicine
DX: K29.20 Alcoholic gastritis without bleeding (principal); K85.20 Alcohol induced acute pancreatitis without necrosis or infection; E10.65 Type 1 diabetes mellitus with hyperglycemia; E87.1 Hypo-osmolality and hyponatremia; E87.6 Hypokalemia; Z79.4 Long term (current) use of insulin; F20.9 Schizophrenia, unspecified; F43.10 Post-traumatic stress disorder, unspecified; Z90.49 Acquired absence of other specified parts of digestive tract; Z96.649 Presence of unspecified artificial hip joint; Z72.89 Other problems related to lifestyle
CPT/HCPCS: 74177; 82805; 84132; 93005; G0378; G0480; J1644; J1815; J1885; J2060; J2270; J2405; J3411; J3475; J3480; J3490; J7030; J7050

== ENCOUNTER 2019-05-02 18:21 | Inpatient (IN) | payer MEDICAID ==
[~2019-05-02] VITALS: Ht 157.5 cm; Wt 65.8 kg
[~2019-05-02 18:21] MED LIST changes: +INSLAN SQ; +INSNOV SQ
[2019-05-02 18:51] VITALS: BP 139/87
[2019-05-02] MEDS ORDERED: MAG HYDROX/AL HYDROX/SIMETH ES 30 ML SUSPENSION UDCUP PO PRN (20:15)
[2019-05-02] MEDS ORDERED: DEXTROSE 50%-WATER 25 GM/50 ML SYRINGE IVP PRN (20:15)
[2019-05-02] MEDS ORDERED: PETROLATUM,WHITE 28 GM JELLY TP PRN (20:15)
[2019-05-02] MEDS: TraZODone HCL 100 MG TABLET PO SCH (20:15)
[2019-05-02] MEDS ORDERED: CloNIDine HCL 0.1 MG TABLET PO PRN (20:15)
[2019-05-02] MEDS ORDERED: ONDANSETRON HCL 4 MG TABLET PO PRN (20:15)
[2019-05-02] MEDS ORDERED: ALBUTEROL SULFATE HFA 90 MCG/PUFF 8 GM INHALER IH PRN (20:15)
[2019-05-02] MEDS ORDERED: NICOTINE 14 MG/24 HOUR PATCH TD PRN (20:15)
[2019-05-02] MEDS ORDERED: GuaiFENesin/D-METHORPHAN [SUGAR-FREE] 200-20MG/10 ML SYRUP UDCUP PO PRN (20:15)
[2019-05-02] MEDS ORDERED: ACETAMINOPHEN 325 MG TABLET PO PRN (20:15)
[2019-05-02] MEDS ORDERED: IBUPROFEN 400 MG TABLET PO PRN (20:15)
[2019-05-02] MEDS: QUEtiapine FUMARATE 300 MG TABLET PO SCH (20:15)
[2019-05-02] MEDS ORDERED: LOPERAMIDE HCL 2 MG CAPSULE PO PRN (20:15)
[2019-05-02] MEDS ORDERED: MAGNESIUM HYDROXIDE SUSPENSION 30 ML UDCUP PO PRN (20:15)
[2019-05-02 20:34] LABS: GLUCOMETER DEV NAME(LOC) 3E.I; GLUCOSE,POINT OF CARE 318 MG/DL (70-110)
[2019-05-02] MEDS: BusPIRone HCL 10 MG TABLET PO SCH (21:15)
[2019-05-02] MEDS: INSULIN LISPRO 100 UNITS/ML SQ PRN (21:16)
[2019-05-03 03:09] VITALS: BP 122/73
[2019-05-03 05:35] LABS: GLUCOMETER DEV NAME(LOC) 3E.I; GLUCOSE,POINT OF CARE 219 MG/DL (70-110)
[2019-05-03] MEDS ORDERED: TraMADol HCL 50 MG TABLET PO PRN (06:15)
[2019-05-03] MEDS: MetFORMIN HCL 850 MG TABLET PO SCH ×2 (06:43→17:30)
[2019-05-03] MEDS: INSULIN LISPRO 100 UNITS/ML SQ PRN ×4 (06:44→21:23)
[2019-05-03 08:08] VITALS: BP 120/78
[2019-05-03] MEDS: MULTIVITAMINS WITH MINERALS, THERAPEUTIC TABLET PO SCH (08:33)
[2019-05-03] MEDS: BusPIRone HCL 10 MG TABLET PO SCH ×3 (08:34→17:30)
[2019-05-03] MEDS: DOCUSATE SODIUM 100 MG CAPSULE PO SCH ×2 (08:34→17:29)
[2019-05-03] MEDS: LevETIRAcetam 250 MG TABLET PO SCH ×2 (08:34→17:29)
[2019-05-03] MEDS: FAMOTIDINE 20 MG TABLET PO SCH (08:34)
[2019-05-03] MEDS: QUEtiapine FUMARATE 300 MG TABLET PO SCH ×2 (08:44→20:52)
[2019-05-03] MEDS: INSULIN GLARGINE,HUM.REC.ANLOG 100 UNITS/ML SQ SCH ×2 (08:46→17:02)
[2019-05-03] MEDS: LORazepam 2 MG TABLET PO PRN ×2 (09:06→20:13)
[2019-05-03 11:29] LABS: GLUCOMETER DEV NAME(LOC) 3E.I; GLUCOSE,POINT OF CARE 267 MG/DL (70-110)
[2019-05-03 16:12] VITALS: BP 115/70
[2019-05-03 16:45] LABS: GLUCOMETER DEV NAME(LOC) 3E.I; GLUCOSE,POINT OF CARE 322 MG/DL (70-110)
[2019-05-03 20:11] VITALS: BP 120/87
[2019-05-03] MEDS: TraZODone HCL 100 MG TABLET PO SCH (20:52)
[2019-05-03 21:29] LABS: GLUCOMETER DEV NAME(LOC) 3E.I; GLUCOSE,POINT OF CARE 249 MG/DL (70-110)
[2019-05-04 05:39] LABS: GLUCOMETER DEV NAME(LOC) 3E.I; GLUCOSE,POINT OF CARE 203 MG/DL (70-110)
[2019-05-04] MEDS: INSULIN LISPRO 100 UNITS/ML SQ PRN ×4 (06:42→21:15)
[2019-05-04] MEDS: MetFORMIN HCL 850 MG TABLET PO SCH ×2 (06:42→17:12)
[2019-05-04] MEDS: LevETIRAcetam 250 MG TABLET PO SCH ×2 (08:03→17:12)
[2019-05-04] MEDS: BusPIRone HCL 10 MG TABLET PO SCH ×3 (08:03→17:12)
[2019-05-04] MEDS: QUEtiapine FUMARATE 300 MG TABLET PO SCH ×2 (08:03→20:41)
[2019-05-04] MEDS: FAMOTIDINE 20 MG TABLET PO SCH (08:03)
[2019-05-04] MEDS: DOCUSATE SODIUM 100 MG CAPSULE PO SCH ×2 (08:03→17:12)
[2019-05-04] MEDS: MULTIVITAMINS WITH MINERALS, THERAPEUTIC TABLET PO SCH (08:03)
[2019-05-04] MEDS: LORazepam 2 MG TABLET PO PRN ×3 (08:10→21:14)
[2019-05-04] MEDS: INSULIN GLARGINE,HUM.REC.ANLOG 100 UNITS/ML SQ SCH ×2 (08:57→17:19)
[2019-05-04 11:24] LABS: GLUCOMETER DEV NAME(LOC) 3E.I; GLUCOSE,POINT OF CARE 183 MG/DL (70-110)
[2019-05-04 12:42] VITALS: BP 150/89
[2019-05-04 16:55] VITALS: BP 120/77
[2019-05-04 17:34] LABS: GLUCOMETER DEV NAME(LOC) 3E.I; GLUCOSE,POINT OF CARE 282 MG/DL (70-110)
[2019-05-04] MEDS: TraZODone HCL 100 MG TABLET PO SCH (20:41)
[2019-05-04 20:54] LABS: GLUCOMETER DEV NAME(LOC) 3E.I; GLUCOSE,POINT OF CARE 278 MG/DL (70-110)
[2019-05-05 05:29] LABS: GLUCOMETER DEV NAME(LOC) 3E.I; GLUCOSE,POINT OF CARE 201 MG/DL (70-110)
[2019-05-05] MEDS: MetFORMIN HCL 850 MG TABLET PO SCH ×2 (07:01→16:14)
[2019-05-05] MEDS: INSULIN LISPRO 100 UNITS/ML SQ PRN ×4 (07:13→20:14)
[2019-05-05] MEDS: DOCUSATE SODIUM 100 MG CAPSULE PO SCH ×2 (07:54→16:18)
[2019-05-05] MEDS: MULTIVITAMINS WITH MINERALS, THERAPEUTIC TABLET PO SCH (07:54)
[2019-05-05] MEDS: LORazepam 2 MG TABLET PO PRN ×3 (07:54→20:16)
[2019-05-05] MEDS: QUEtiapine FUMARATE 300 MG TABLET PO SCH ×2 (07:55→20:08)
[2019-05-05] MEDS: FAMOTIDINE 20 MG TABLET PO SCH (07:55)
[2019-05-05] MEDS: BusPIRone HCL 10 MG TABLET PO SCH ×3 (07:55→16:15)
[2019-05-05] MEDS: LevETIRAcetam 250 MG TABLET PO SCH ×2 (07:56→16:15)
[2019-05-05 08:05] VITALS: BP 119/79
[2019-05-05] MEDS: INSULIN GLARGINE,HUM.REC.ANLOG 100 UNITS/ML SQ SCH ×2 (08:47→16:33)
[2019-05-05 11:33] LABS: GLUCOMETER DEV NAME(LOC) 3E.I; GLUCOSE,POINT OF CARE 244 MG/DL (70-110)
[2019-05-05 16:24] LABS: GLUCOMETER DEV NAME(LOC) 3E.I; GLUCOSE,POINT OF CARE 245 MG/DL (70-110)
[2019-05-05 16:32] VITALS: BP 124/85
[2019-05-05] MEDS: TraZODone HCL 100 MG TABLET PO SCH (20:08)
[2019-05-05 20:19] LABS: GLUCOMETER DEV NAME(LOC) 3E.I; GLUCOSE,POINT OF CARE 290 MG/DL (70-110)
[2019-05-06 05:39] LABS: GLUCOMETER DEV NAME(LOC) 3E.I; GLUCOSE,POINT OF CARE 189 MG/DL (70-110)
[2019-05-06] MEDS: METHOCARBAMOL 500 MG TABLET PO SCH ×2 (06:57→17:03)
[2019-05-06] MEDS: INSULIN LISPRO 100 UNITS/ML SQ PRN ×4 (06:58→21:04)
[2019-05-06 08:00] VITALS: BP 108/73
[2019-05-06] MEDS: LORazepam 2 MG TABLET PO PRN ×3 (08:02→20:48)
[2019-05-06] MEDS: BusPIRone HCL 10 MG TABLET PO SCH ×3 (08:02→17:04)
[2019-05-06] MEDS: LevETIRAcetam 250 MG TABLET PO SCH ×2 (08:02→17:03)
[2019-05-06] MEDS: FAMOTIDINE 20 MG TABLET PO SCH (08:03)
[2019-05-06] MEDS: QUEtiapine FUMARATE 300 MG TABLET PO SCH ×2 (08:03→20:59)
[2019-05-06] MEDS: MULTIVITAMINS WITH MINERALS, THERAPEUTIC TABLET PO SCH (08:04)
[2019-05-06] MEDS: INSULIN GLARGINE,HUM.REC.ANLOG 100 UNITS/ML SQ SCH ×2 (08:11→17:07)
[2019-05-06] MEDS: DOCUSATE SODIUM 100 MG CAPSULE PO SCH ×2 (08:12→17:03)
[2019-05-06 11:04] LABS: GLUCOMETER DEV NAME(LOC) 3E.I; GLUCOSE,POINT OF CARE 304 MG/DL (70-110)
[2019-05-06 16:51] VITALS: BP 129/77
[2019-05-06 17:09] LABS: GLUCOMETER DEV NAME(LOC) 3E.I; GLUCOSE,POINT OF CARE 245 MG/DL (70-110)
[2019-05-06 18:30] VITALS: BP 130/77
[2019-05-06 20:49] LABS: GLUCOMETER DEV NAME(LOC) 3E.I; GLUCOSE,POINT OF CARE 225 MG/DL (70-110)
[2019-05-06] MEDS: TraZODone HCL 100 MG TABLET PO SCH (20:59)
[2019-05-07 05:29] LABS: GLUCOMETER DEV NAME(LOC) 3E.I; GLUCOSE,POINT OF CARE 130 MG/DL (70-110)
[2019-05-07 05:30] VITALS: BP 115/84
[2019-05-07] MEDS: LORazepam 2 MG TABLET PO PRN ×2 (05:30→17:31)
[2019-05-07] MEDS: METHOCARBAMOL 500 MG TABLET PO SCH ×2 (06:38→17:20)
[2019-05-07 08:00] VITALS: BP 108/73
[2019-05-07] MEDS: LevETIRAcetam 250 MG TABLET PO SCH ×2 (08:51→17:20)
[2019-05-07] MEDS: QUEtiapine FUMARATE 300 MG TABLET PO SCH ×2 (08:51→20:34)
[2019-05-07] MEDS: BusPIRone HCL 10 MG TABLET PO SCH ×3 (08:51→17:20)
[2019-05-07] MEDS: MULTIVITAMINS WITH MINERALS, THERAPEUTIC TABLET PO SCH (08:51)
[2019-05-07] MEDS: DOCUSATE SODIUM 100 MG CAPSULE PO SCH ×2 (08:51→17:20)
[2019-05-07] MEDS: FAMOTIDINE 20 MG TABLET PO SCH (08:51)
[2019-05-07] MEDS: INSULIN GLARGINE,HUM.REC.ANLOG 100 UNITS/ML SQ SCH ×2 (08:57→17:27)
[2019-05-07 10:58] LABS: GLUCOMETER DEV NAME(LOC) 3E.I; GLUCOSE,POINT OF CARE 384 MG/DL (70-110)
[2019-05-07] MEDS: INSULIN LISPRO 100 UNITS/ML SQ PRN ×3 (11:54→20:38)
[2019-05-07 16:20] VITALS: BP 111/77
[2019-05-07 17:34] LABS: GLUCOMETER DEV NAME(LOC) 3E.I; GLUCOSE,POINT OF CARE 226 MG/DL (70-110)
[2019-05-07] MEDS: TraZODone HCL 100 MG TABLET PO SCH (20:34)
[2019-05-07 20:44] LABS: GLUCOMETER DEV NAME(LOC) 3E.I; GLUCOSE,POINT OF CARE 317 MG/DL (70-110)
[2019-05-07] MEDS ORDERED: PRAZOSIN HCL 1 MG CAPSULE PO SCH (21:00)
[2019-05-08 02:05] VITALS: BP 106/75
[2019-05-08] MEDS: LORazepam 2 MG TABLET PO PRN ×2 (02:15→09:52)
[2019-05-08 06:19] LABS: GLUCOMETER DEV NAME(LOC) 3E.I; GLUCOSE,POINT OF CARE 232 MG/DL (70-110)
[2019-05-08] MEDS: INSULIN LISPRO 100 UNITS/ML SQ PRN ×2 (06:31→11:57)
[2019-05-08] MEDS: METHOCARBAMOL 500 MG TABLET PO SCH (06:55)
[2019-05-08] MEDS: DOCUSATE SODIUM 100 MG CAPSULE PO SCH (09:40)
[2019-05-08] MEDS: FAMOTIDINE 20 MG TABLET PO SCH (09:40)
[2019-05-08] MEDS: QUEtiapine FUMARATE 300 MG TABLET PO SCH (09:40)
[2019-05-08] MEDS: MULTIVITAMINS WITH MINERALS, THERAPEUTIC TABLET PO SCH (09:40)
[2019-05-08] MEDS: BusPIRone HCL 10 MG TABLET PO SCH ×2 (09:41→12:50)
[2019-05-08] MEDS: LevETIRAcetam 250 MG TABLET PO SCH (09:41)
[2019-05-08] MEDS: INSULIN GLARGINE,HUM.REC.ANLOG 100 UNITS/ML SQ SCH (09:49)
[2019-05-08 10:00] VITALS: BP 104/77
[2019-05-08 11:34] LABS: GLUCOMETER DEV NAME(LOC) 3E.I; GLUCOSE,POINT OF CARE 314 MG/DL (70-110)
[2019-05-08] MEDS ORDERED: QUET300T2 PO (11:47)
[2019-05-08] MEDS ORDERED: TRAZ-220 PO (11:47)
[2019-05-08] MEDS ORDERED: BUSP10TA23 PO (11:48)
[2019-05-08] MEDS ORDERED: PRAZ1 PO (11:51)
[2019-05-08] MEDS ORDERED: LEVE250T55 PO (11:53)
[2019-05-08] MEDS ORDERED: MULT-1239 PO (11:53)
[2019-05-08] MEDS ORDERED: DSS100 PO (11:53)
[2019-05-08] MEDS ORDERED: FAMO20 PO (11:53)
== END 2019-05-08 15:30 | disposition home or self-care (01) | DRG 751 ==
LOC: OBSVTOIN 19:20 → 3EI 19:20
PROVIDERS: ADMIT Psychiatry & Neurology Psychiatry; ATTEND Psychiatry & Neurology Psychiatry
DX: F33.2 Major depressive disorder, recurrent severe without psychotic features (principal); K86.1 Other chronic pancreatitis; E11.9 Type 2 diabetes mellitus without complications; E03.9 Hypothyroidism, unspecified; E78.5 Hyperlipidemia, unspecified; F10.10 Alcohol abuse, uncomplicated; F43.10 Post-traumatic stress disorder, unspecified; G40.909 Epilepsy, unspecified, not intractable, without status epilepticus; Z59.0 Homelessness; Z79.4 Long term (current) use of insulin; Z91.018 Allergy to other foods
CPT/HCPCS: 87081; J1815

== ENCOUNTER 2019-05-10 08:42 | Inpatient (IN) | payer MEDICAID ==
[~2019-05-10] VITALS: Ht 157.5 cm; Wt 63.0 kg
[2019-05-10] VITALS (9 sets, daily range): BP systolic 100–126; BP diastolic 60–91
[~2019-05-10 08:42] MED LIST changes: +BUSP10TA23 PO; -DIVA125T32 PO; +DSS100 PO; +FAMO20 PO; -INSNOV SQ; +LEVE250T55 PO; +MULT-1239 PO; +TRAZ-220 PO
[2019-05-10] MEDS ORDERED: LORazepam 2 MG TABLET PO PRN (11:30)
[2019-05-10] MEDS ORDERED: IBUPROFEN 400 MG TABLET PO PRN (13:15)
[2019-05-10] MEDS ORDERED: MAGNESIUM HYDROXIDE SUSPENSION 30 ML UDCUP PO PRN (13:15)
[2019-05-10] MEDS ORDERED: ACETAMINOPHEN 325 MG TABLET PO PRN (13:15)
[2019-05-10] MEDS ORDERED: DOCUSATE SODIUM 100 MG CAPSULE PO PRN (13:15)
[2019-05-10] MEDS ORDERED: ALBUTEROL SULFATE HFA 90 MCG/PUFF 8 GM INHALER IH PRN (13:15)
[2019-05-10] MEDS ORDERED: MAG HYDROX/AL HYDROX/SIMETH ES 30 ML SUSPENSION UDCUP PO PRN (13:15)
[2019-05-10] MEDS ORDERED: CYANOCOBALAMIN 1,000 MCG/ML VIAL IM ONE (13:15)
[2019-05-10] MEDS ORDERED: PETROLATUM,WHITE 28 GM JELLY TP PRN (13:15)
[2019-05-10] MEDS ORDERED: TraMADol HCL 50 MG TABLET PO PRN (13:15)
[2019-05-10] MEDS ORDERED: GLUCAGON,HUMAN RECOMBINANT 1 MG VIAL IM PRN (13:15)
[2019-05-10] MEDS ORDERED: CloNIDine HCL 0.1 MG TABLET PO PRN (13:15)
[2019-05-10] MEDS ORDERED: ONDANSETRON HCL 4 MG TABLET PO PRN (13:15)
[2019-05-10] MEDS ORDERED: NICOTINE 14 MG/24 HOUR PATCH TD PRN (13:15)
[2019-05-10] MEDS ORDERED: GuaiFENesin/D-METHORPHAN [SUGAR-FREE] 200-20MG/10 ML SYRUP UDCUP PO PRN (13:15)
[2019-05-10] MEDS ORDERED: INSULIN LISPRO 100 UNITS/ML SQ ONE (13:45)
[2019-05-10] MEDS: FOLIC ACID 1 MG TABLET PO SCH (13:58)
[2019-05-10] MEDS: MULTIVITAMINS WITH MINERALS, THERAPEUTIC TABLET PO SCH (13:58)
[2019-05-10 14:09] LABS: GLUCOMETER DEV NAME(LOC) BV2S.; GLUCOSE,POINT OF CARE 429 MG/DL (70-110)
[2019-05-10 15:09] LABS: GLUCOMETER DEV NAME(LOC) BV2S.; GLUCOSE,POINT OF CARE 365 MG/DL (70-110)
[2019-05-10] MEDS: LOPERAMIDE HCL 2 MG CAPSULE PO PRN (15:46)
[2019-05-10 16:18] LABS: GLUCOMETER DEV NAME(LOC) BV2S.; GLUCOSE,POINT OF CARE 74 MG/DL (70-110)
[2019-05-10] MEDS: QUEtiapine FUMARATE 300 MG TABLET PO SCH ×2 (16:35→21:05)
[2019-05-10] MEDS: BusPIRone HCL 10 MG TABLET PO SCH (16:35)
[2019-05-10] MEDS: METHOCARBAMOL 500 MG TABLET PO SCH (16:35)
[2019-05-10] MEDS: LevETIRAcetam 250 MG TABLET PO SCH (16:36)
[2019-05-10] MEDS: THIAMINE HCL 100 MG TABLET PO SCH (16:36)
[2019-05-10] MEDS ORDERED: QUEtiapine FUMARATE 300 MG TABLET PO SCH (17:00)
[2019-05-10] MEDS ORDERED: INSULIN GLARGINE,HUM.REC.ANLOG 100 UNITS/ML SQ ONE (17:00)
[2019-05-10] MEDS: MetFORMIN HCL 850 MG TABLET PO SCH (17:00)
[2019-05-10 20:44] LABS: GLUCOMETER DEV NAME(LOC) BV2S.; GLUCOSE,POINT OF CARE 315 MG/DL (70-110)
[2019-05-10] MEDS: PRAZOSIN HCL 1 MG CAPSULE PO SCH (21:04)
[2019-05-10] MEDS: TraZODone HCL 100 MG TABLET PO SCH (21:04)
[2019-05-10] MEDS: INSULIN LISPRO 100 UNITS/ML SQ PRN (21:10)
[2019-05-10] MEDS: INSULIN GLARGINE,HUM.REC.ANLOG 100 UNITS/ML SQ SCH (21:10)
[2019-05-11] VITALS (13 sets, daily range): BP systolic 92–126; BP diastolic 60–90
[2019-05-11] MEDS: INSULIN LISPRO 100 UNITS/ML SQ PRN ×4 (06:50→20:59)
[2019-05-11] MEDS: MetFORMIN HCL 850 MG TABLET PO SCH ×2 (06:51→16:59)
[2019-05-11] MEDS: METHOCARBAMOL 500 MG TABLET PO SCH ×2 (06:53→16:59)
[2019-05-11 06:54] LABS: GLUCOMETER DEV NAME(LOC) BV2S.; GLUCOSE,POINT OF CARE 178 MG/DL (70-110)
[2019-05-11] MEDS ORDERED: LORazepam 2 MG TABLET PO PRN (07:00)
[2019-05-11 08:14] LABS: BASOPHILS % (AUTO) 1.2 % (0.0-2.0); EOSINOPHILS % (AUTO) 1.9 % (1.0-6.0); HEMATOCRIT 46.3 % (41-53); HEMOGLOBIN 14.9 g/dL (13.5-17.5); LYMPHOCYTES # (AUTO) 1.7 K/uL (1.0-4.8); LYMPHOCYTES % (AUTO) 39.1 % (22.0-44.0); MEAN CORPUSCULAR HEMOGLOBIN 28.9 pg (26.0-34.0); MEAN CORPUSCULAR HGB CONC 32.1 G/dL (31.0-37.0); MEAN CORPUSCULAR VOLUME 90 fL (80-100); MONOCYTES # (AUTO) 0.5 K/uL (0.1-1.0); MONOCYTES % (AUTO) 12.1 % (2.0-9.0); NEUTROPHILS % (AUTO) 45.7 % (40.0-70.0); PLATELET COUNT (AUTO) 320 K/uL (150-450); RED BLOOD CELL COUNT(AUTO) 5.16 MIL/uL (4.50-5.90)
[2019-05-11 08:19] LABS: HEMOGLOBIN A1C 7.9 % (4.5-6.2)
[2019-05-11] MEDS: QUEtiapine FUMARATE 300 MG TABLET PO SCH ×2 (08:35→20:35)
[2019-05-11] MEDS: BusPIRone HCL 10 MG TABLET PO SCH ×3 (08:35→17:00)
[2019-05-11] MEDS: FOLIC ACID 1 MG TABLET PO SCH (08:35)
[2019-05-11] MEDS: THIAMINE HCL 100 MG TABLET PO SCH ×2 (08:35→16:59)
[2019-05-11] MEDS: LORazepam 2 MG TABLET PO SCH ×4 (08:35→20:34)
[2019-05-11] MEDS: MULTIVITAMINS WITH MINERALS, THERAPEUTIC TABLET PO SCH (08:35)
[2019-05-11] MEDS: LevETIRAcetam 250 MG TABLET PO SCH ×2 (08:36→17:00)
[2019-05-11 08:40] LABS: ALANINE AMINOTRANSFERASE 265 U/L (12-78); ALBUMIN 3.3 g/dL (3.4-5.0); ALKALINE PHOSPHATASE 284 U/L (46-116); ANION GAP 6 mmol/L (8-16); ASPARTATE AMINOTRANSFERASE 106 U/L (15-37); BILIRUBIN,TOTAL 0.5 mg/dL (0.1-1.0); CALCIUM, TOTAL 9.6 mg/dL (8.8-10.5); CARBON DIOXIDE 27 mmol/L (22-29); CHLORIDE 104 mmol/L (98-107); CHOL/HDL RATIO 2.1 (4.2-7.3); CHOLESTEROL 167 mg/dL (131-200); GLOMERULAR FILTR. RATE CALC > 60 mL/min (>60); GLUCOSE,RANDOM 199 mg/dL (70-110); HDL CHOLESTEROL 78 mg/dL (40-60); LDL CHOL (CALC.) 63 mg/dL (0-130); POTASSIUM 4.4 mmol/L (3.5-5.1); SODIUM SERUM 137 mmol/L (136-145); THYROID STIMULATING HORMONE 2.12 uIU/mL (0.36-3.74); TOTAL PROTEIN, SERUM 7.3 g/dL (6.4-8.2); TRIGLYCERIDES 128 mg/dL (15-150); UREA NITROGEN, BLOOD 11 mg/dL (7-18)
[2019-05-11] MEDS: LOPERAMIDE HCL 2 MG CAPSULE PO PRN (08:41)
[2019-05-11] MEDS: INSULIN GLARGINE,HUM.REC.ANLOG 100 UNITS/ML SQ SCH ×2 (08:43→16:48)
[2019-05-11 11:05] LABS: GLUCOMETER DEV NAME(LOC) BV2S.; GLUCOSE,POINT OF CARE 263 MG/DL (70-110)
[2019-05-11] MEDS: LACTOBACILLUS ACIDOPHILUS/BULGARICUS GRANULES PACKET PO SCH ×2 (12:34→16:59)
[2019-05-11 17:00] LABS: GLUCOMETER DEV NAME(LOC) BV2S.; GLUCOSE,POINT OF CARE 316 MG/DL (70-110)
[2019-05-11] MEDS: TraZODone HCL 100 MG TABLET PO SCH (20:34)
[2019-05-11] MEDS: PRAZOSIN HCL 1 MG CAPSULE PO SCH (21:00)
[2019-05-11 21:28] LABS: GLUCOMETER DEV NAME(LOC) BV2S.; GLUCOSE,POINT OF CARE 191 MG/DL (70-110)
[2019-05-12 06:42] VITALS: BP 100/67
[2019-05-12 06:44] LABS: GLUCOMETER DEV NAME(LOC) BV2S.; GLUCOSE,POINT OF CARE 159 MG/DL (70-110)
[2019-05-12] MEDS: MetFORMIN HCL 850 MG TABLET PO SCH ×2 (06:52→17:10)
[2019-05-12] MEDS: METHOCARBAMOL 500 MG TABLET PO SCH ×2 (06:53→17:08)
[2019-05-12] MEDS: INSULIN LISPRO 100 UNITS/ML SQ PRN ×4 (06:56→21:14)
[2019-05-12 07:08] VITALS: BP 100/67
[2019-05-12] MEDS: QUEtiapine FUMARATE 300 MG TABLET PO SCH ×2 (08:12→20:44)
[2019-05-12] MEDS: MULTIVITAMINS WITH MINERALS, THERAPEUTIC TABLET PO SCH (08:12)
[2019-05-12] MEDS: LevETIRAcetam 250 MG TABLET PO SCH ×2 (08:12→17:08)
[2019-05-12] MEDS: BusPIRone HCL 10 MG TABLET PO SCH ×3 (08:12→17:08)
[2019-05-12] MEDS: THIAMINE HCL 100 MG TABLET PO SCH ×2 (08:13→17:08)
[2019-05-12] MEDS: LORazepam 2 MG TABLET PO SCH ×4 (08:13→20:43)
[2019-05-12] MEDS: LACTOBACILLUS ACIDOPHILUS/BULGARICUS GRANULES PACKET PO SCH ×3 (08:13→17:09)
[2019-05-12] MEDS: FOLIC ACID 1 MG TABLET PO SCH (08:13)
[2019-05-12 08:15] LABS: AMPHET/METH SCREEN,URINE NEGATIVE (NEGATIVE); BARBITURATE SCREEN, URINE NEGATIVE (NEGATIVE); BENZODIAZEPINES SCREEN,URINE NEGATIVE (NEGATIVE); CANNABINOID SCREEN,URINE NEGATIVE (NEGATIVE); COCAINE SCREEN,URINE NEGATIVE (NEGATIVE); METHADONE SCREEN, URINE NEGATIVE (NEGATIVE); OPIATE SCREEN,URINE NEGATIVE (NEGATIVE)
[2019-05-12] MEDS: INSULIN GLARGINE,HUM.REC.ANLOG 100 UNITS/ML SQ SCH ×2 (08:17→18:01)
[2019-05-12 08:18] LABS: APPEARANCE,URINE CLEAR (CLEAR); BILIRUBIN,URINE NEGATIVE (NEGATIVE); GLUCOSE, URINE (UA) >=1000 mg/dL (NEGATIVE); KETONES,URINE NEGATIVE (NEGATIVE); NITRATE,URINE NEGATIVE (NEGATIVE); OCCULT BLOOD,URINE NEGATIVE (NEGATIVE); PH,URINE 5.5 (5.0-8.0); PHENCYCLIDINE SCREEN,URINE NEGATIVE (NEGATIVE); PROTEIN,URINE NEGATIVE (NEGATIVE); UROBILINOGEN,URINE 0.2 mg/dL (<=1.0)
[2019-05-12 08:44] VITALS: BP 106/73
[2019-05-12 08:45] VITALS: BP 106/73
[2019-05-12 09:48] LABS: BACTERIA,URINE None Seen /HPF (None Seen); LEUKOCYTE ESTERASE ,URINE SMALL (NEGATIVE); RBC,URINE 0-2 /HPF (0-2)
[2019-05-12 11:09] LABS: GLUCOMETER DEV NAME(LOC) BV2S.; GLUCOSE,POINT OF CARE 239 MG/DL (70-110)
[2019-05-12 16:46] VITALS: BP 100/71
[2019-05-12 16:59] LABS: GLUCOMETER DEV NAME(LOC) BV2S.; GLUCOSE,POINT OF CARE 248 MG/DL (70-110)
[2019-05-12] MEDS: LOPERAMIDE HCL 2 MG CAPSULE PO PRN (17:09)
[2019-05-12 19:08] VITALS: BP 100/71
[2019-05-12] MEDS: PRAZOSIN HCL 1 MG CAPSULE PO SCH (20:43)
[2019-05-12] MEDS: TraZODone HCL 100 MG TABLET PO SCH (20:43)
[2019-05-12 20:54] LABS: GLUCOMETER DEV NAME(LOC) BV2S.; GLUCOSE,POINT OF CARE 239 MG/DL (70-110)
[2019-05-13 00:26] VITALS: BP 123/66
[2019-05-13 04:34] VITALS: BP 123/66
[2019-05-13] MEDS: MetFORMIN HCL 850 MG TABLET PO SCH ×2 (06:38→17:00)
[2019-05-13] MEDS: METHOCARBAMOL 500 MG TABLET PO SCH ×2 (06:38→17:01)
[2019-05-13] MEDS: INSULIN LISPRO 100 UNITS/ML SQ PRN ×4 (06:42→20:43)
[2019-05-13 06:49] LABS: GLUCOMETER DEV NAME(LOC) BV2S.; GLUCOSE,POINT OF CARE 179 MG/DL (70-110)
[2019-05-13] MEDS ORDERED: LORazepam 1 MG TABLET PO PRN (07:00)
[2019-05-13 08:01] VITALS: BP 100/62
[2019-05-13] MEDS: QUEtiapine FUMARATE 300 MG TABLET PO SCH ×2 (08:29→20:16)
[2019-05-13] MEDS: LORazepam 1 MG TABLET PO SCH ×4 (08:29→20:16)
[2019-05-13] MEDS: LACTOBACILLUS ACIDOPHILUS/BULGARICUS GRANULES PACKET PO SCH ×4 (08:29→17:00)
[2019-05-13] MEDS: MULTIVITAMINS WITH MINERALS, THERAPEUTIC TABLET PO SCH (08:29)
[2019-05-13] MEDS: THIAMINE HCL 100 MG TABLET PO SCH ×2 (08:29→17:01)
[2019-05-13] MEDS: FOLIC ACID 1 MG TABLET PO SCH (08:29)
[2019-05-13] MEDS: BusPIRone HCL 10 MG TABLET PO SCH ×3 (08:30→17:01)
[2019-05-13] MEDS: LevETIRAcetam 250 MG TABLET PO SCH ×2 (08:30→17:01)
[2019-05-13 08:44] VITALS: BP 100/62
[2019-05-13 08:59] LABS: GLUCOMETER DEV NAME(LOC) BV2S.; GLUCOSE,POINT OF CARE 205 MG/DL (70-110)
[2019-05-13] MEDS: INSULIN GLARGINE,HUM.REC.ANLOG 100 UNITS/ML SQ SCH ×2 (09:01→16:52)
[2019-05-13 11:44] LABS: GLUCOMETER DEV NAME(LOC) BV2S.; GLUCOSE,POINT OF CARE 208 MG/DL (70-110)
[2019-05-13 16:01] VITALS: BP 105/65
[2019-05-13 16:59] LABS: GLUCOMETER DEV NAME(LOC) BV2S.; GLUCOSE,POINT OF CARE 284 MG/DL (70-110)
[2019-05-13 20:15] VITALS: BP 119/83
[2019-05-13] MEDS: PRAZOSIN HCL 1 MG CAPSULE PO SCH (20:16)
[2019-05-13] MEDS: TraZODone HCL 100 MG TABLET PO SCH (20:16)
[2019-05-13 20:54] LABS: GLUCOMETER DEV NAME(LOC) BV2S.; GLUCOSE,POINT OF CARE 250 MG/DL (70-110)
[2019-05-13] MEDS: ZOLPIDEM TARTRATE 10 MG TABLET PO PRN (21:34)
[2019-05-14 01:30] VITALS: BP 111/81
[2019-05-14 06:34] LABS: GLUCOMETER DEV NAME(LOC) BV2S.; GLUCOSE,POINT OF CARE 155 MG/DL (70-110)
[2019-05-14] MEDS: METHOCARBAMOL 500 MG TABLET PO SCH ×2 (06:50→17:09)
[2019-05-14] MEDS: MetFORMIN HCL 850 MG TABLET PO SCH ×2 (06:50→17:08)
[2019-05-14] MEDS: INSULIN LISPRO 100 UNITS/ML SQ PRN ×4 (06:52→20:52)
[2019-05-14 08:00] VITALS: BP 102/71
[2019-05-14] MEDS: BusPIRone HCL 10 MG TABLET PO SCH ×3 (08:22→17:08)
[2019-05-14] MEDS: FOLIC ACID 1 MG TABLET PO SCH (08:22)
[2019-05-14] MEDS: MULTIVITAMINS WITH MINERALS, THERAPEUTIC TABLET PO SCH (08:22)
[2019-05-14] MEDS: THIAMINE HCL 100 MG TABLET PO SCH ×2 (08:22→17:08)
[2019-05-14] MEDS: QUEtiapine FUMARATE 300 MG TABLET PO SCH ×2 (08:23→20:38)
[2019-05-14] MEDS: LACTOBACILLUS ACIDOPHILUS/BULGARICUS GRANULES PACKET PO SCH ×3 (08:23→17:09)
[2019-05-14] MEDS: LevETIRAcetam 250 MG TABLET PO SCH ×2 (08:23→17:08)
[2019-05-14] MEDS: INSULIN GLARGINE,HUM.REC.ANLOG 100 UNITS/ML SQ SCH ×2 (08:29→16:44)
[2019-05-14 08:45] VITALS: BP 102/71
[2019-05-14] MEDS: LORazepam 1 MG TABLET PO PRN ×3 (09:20→20:39)
[2019-05-14 09:29] LABS: GLUCOMETER DEV NAME(LOC) BV2S.; GLUCOSE,POINT OF CARE 296 MG/DL (70-110)
[2019-05-14 11:04] LABS: GLUCOMETER DEV NAME(LOC) BV2S.; GLUCOSE,POINT OF CARE 148 MG/DL (70-110)
[2019-05-14] MEDS ORDERED: BuPROPion HCL XL 150 MG ER TABLET PO ONE (11:45)
[2019-05-14 16:28] VITALS: BP 129/91
[2019-05-14 16:55] LABS: GLUCOMETER DEV NAME(LOC) BV2S.; GLUCOSE,POINT OF CARE 248 MG/DL (70-110)
[2019-05-14 20:35] VITALS: BP 142/82
[2019-05-14] MEDS: TraZODone HCL 100 MG TABLET PO SCH (20:38)
[2019-05-14] MEDS: PRAZOSIN HCL 1 MG CAPSULE PO SCH (20:38)
[2019-05-14 21:40] LABS: GLUCOMETER DEV NAME(LOC) BV2S.; GLUCOSE,POINT OF CARE 195 MG/DL (70-110)
[2019-05-14] MEDS: ZOLPIDEM TARTRATE 10 MG TABLET PO PRN (22:04)
[2019-05-15 00:34] VITALS: BP 107/67
[2019-05-15] MEDS: LORazepam 1 MG TABLET PO PRN ×2 (06:01→10:03)
[2019-05-15 06:20] LABS: GLUCOMETER DEV NAME(LOC) BV2S.; GLUCOSE,POINT OF CARE 159 MG/DL (70-110)
[2019-05-15] MEDS: INSULIN LISPRO 100 UNITS/ML SQ PRN ×4 (06:45→20:54)
[2019-05-15] MEDS: MetFORMIN HCL 850 MG TABLET PO SCH ×2 (06:52→16:27)
[2019-05-15] MEDS: METHOCARBAMOL 500 MG TABLET PO SCH ×2 (06:53→16:28)
[2019-05-15] MEDS: THIAMINE HCL 100 MG TABLET PO SCH ×2 (08:26→16:28)
[2019-05-15] MEDS: MULTIVITAMINS WITH MINERALS, THERAPEUTIC TABLET PO SCH (08:26)
[2019-05-15] MEDS: BusPIRone HCL 10 MG TABLET PO SCH ×3 (08:26→16:28)
[2019-05-15] MEDS: QUEtiapine FUMARATE 300 MG TABLET PO SCH ×2 (08:26→21:19)
[2019-05-15] MEDS: FOLIC ACID 1 MG TABLET PO SCH (08:26)
[2019-05-15] MEDS: BuPROPion HCL XL 150 MG ER TABLET PO SCH (08:26)
[2019-05-15] MEDS: LACTOBACILLUS ACIDOPHILUS/BULGARICUS GRANULES PACKET PO SCH ×3 (08:26→16:30)
[2019-05-15] MEDS: LevETIRAcetam 250 MG TABLET PO SCH ×2 (08:27→16:27)
[2019-05-15 08:44] VITALS: BP 103/69
[2019-05-15] MEDS: INSULIN GLARGINE,HUM.REC.ANLOG 100 UNITS/ML SQ SCH ×2 (09:02→17:37)
[2019-05-15 09:09] LABS: GLUCOMETER DEV NAME(LOC) BV2S.; GLUCOSE,POINT OF CARE 237 MG/DL (70-110)
[2019-05-15 09:45] VITALS: BP 110/87
[2019-05-15 13:29] LABS: GLUCOMETER DEV NAME(LOC) BV2S.; GLUCOSE,POINT OF CARE 258 MG/DL (70-110)
[2019-05-15 16:23] VITALS: BP 117/87
[2019-05-15 17:15] LABS: GLUCOMETER DEV NAME(LOC) BV2S.; GLUCOSE,POINT OF CARE 373 MG/DL (70-110)
[2019-05-15 20:34] LABS: GLUCOMETER DEV NAME(LOC) BV2S.; GLUCOSE,POINT OF CARE 227 MG/DL (70-110)
[2019-05-15] MEDS: ZOLPIDEM TARTRATE 10 MG TABLET PO PRN (21:19)
[2019-05-15] MEDS: PRAZOSIN HCL 1 MG CAPSULE PO SCH (21:19)
[2019-05-15] MEDS: TraZODone HCL 100 MG TABLET PO SCH (21:19)
[2019-05-16 06:14] LABS: GLUCOMETER DEV NAME(LOC) BV2S.; GLUCOSE,POINT OF CARE 169 MG/DL (70-110)
[2019-05-16] MEDS: MetFORMIN HCL 850 MG TABLET PO SCH (06:23)
[2019-05-16] MEDS: INSULIN LISPRO 100 UNITS/ML SQ PRN ×2 (06:31→11:00)
[2019-05-16 06:33] VITALS: BP 105/62
[2019-05-16] MEDS: METHOCARBAMOL 500 MG TABLET PO SCH (06:42)
[2019-05-16 06:48] VITALS: BP 118/68
[2019-05-16] MEDS: LORazepam 1 MG TABLET PO PRN (06:48)
[2019-05-16 08:52] VITALS: BP 132/67
[2019-05-16] MEDS: LevETIRAcetam 250 MG TABLET PO SCH (09:01)
[2019-05-16] MEDS: BusPIRone HCL 10 MG TABLET PO SCH ×2 (09:01→12:13)
[2019-05-16] MEDS: MULTIVITAMINS WITH MINERALS, THERAPEUTIC TABLET PO SCH (09:01)
[2019-05-16] MEDS: FOLIC ACID 1 MG TABLET PO SCH (09:01)
[2019-05-16] MEDS: THIAMINE HCL 100 MG TABLET PO SCH (09:01)
[2019-05-16] MEDS: QUEtiapine FUMARATE 300 MG TABLET PO SCH (09:01)
[2019-05-16] MEDS: BuPROPion HCL XL 150 MG ER TABLET PO SCH (09:01)
[2019-05-16] MEDS: LACTOBACILLUS ACIDOPHILUS/BULGARICUS GRANULES PACKET PO SCH ×2 (09:03→12:13)
[2019-05-16] MEDS: INSULIN GLARGINE,HUM.REC.ANLOG 100 UNITS/ML SQ SCH (09:12)
[2019-05-16 09:29] LABS: GLUCOMETER DEV NAME(LOC) BV2S.; GLUCOSE,POINT OF CARE 223 MG/DL (70-110)
[2019-05-16] MEDS ORDERED: PRAZ1 PO (10:46)
[2019-05-16] MEDS ORDERED: BUPR-93 PO (10:46)
[2019-05-16] MEDS ORDERED: METF-960 PO (10:46)
[2019-05-16] MEDS ORDERED: METF-445 PO (10:46)
[2019-05-16] MEDS ORDERED: FOLI1 PO (10:46)
[2019-05-16] MEDS ORDERED: LACT1POW8 MC (10:46)
[2019-05-16] MEDS ORDERED: INSLAN SQ (10:48)
[2019-05-16] MEDS ORDERED: METH500T7 PO (10:48)
[2019-05-16] MEDS ORDERED: THIA100T67 PO (10:52)
[2019-05-16 11:04] LABS: GLUCOMETER DEV NAME(LOC) BV2S.; GLUCOSE,POINT OF CARE 245 MG/DL (70-110)
== END 2019-05-16 13:25 | disposition home or self-care (01) | DRG 750 ==
LOC: B2S 10:45
PROVIDERS: ATTEND Psychiatry & Neurology Psychiatry
DX: F25.1 Schizoaffective disorder, depressive type (principal); R45.851 Suicidal ideations; K86.1 Other chronic pancreatitis; E03.9 Hypothyroidism, unspecified; G40.909 Epilepsy, unspecified, not intractable, without status epilepticus; F43.12 Post-traumatic stress disorder, chronic; K21.9 Gastro-esophageal reflux disease without esophagitis; E11.9 Type 2 diabetes mellitus without complications; Z96.649 Presence of unspecified artificial hip joint; Z91.5 Personal history of self-harm; F10.10 Alcohol abuse, uncomplicated; E78.5 Hyperlipidemia, unspecified; K59.00 Constipation, unspecified; R74.0 Nonspecific elevation of levels of transaminase and lactic acid dehydrogenase [LDH]
CPT/HCPCS: 80307; 83036; 84443; 87045; 87081; J1815; J3420

== ENCOUNTER 2019-05-16 18:51 | Emergency (ER) | payer MEDICAID, OTHER ==
[~2019-05-16] VITALS: Ht 157.5 cm; Wt 63.2 kg
[~2019-05-16 18:51] MED LIST changes: +BUPR-93 PO; +FOLI1 PO; +LACT1POW8 MC; +METF-445 PO; +METF-960 PO; +METH500T7 PO; +THIA100T67 PO
[2019-05-16 19:29] LABS: GLUCOSE,POINT OF CARE 396 MG/DL (70-110)
[2019-05-16 21:29] LABS: GLUCOSE,POINT OF CARE 317 MG/DL (70-110)
[2019-05-16] MEDS ORDERED: INSULIN REGULAR, HUMAN 100 UNITS/ML SQ ONE (21:30)
[2019-05-16 22:01] VITALS: BP 140/90
== END 2019-05-16 22:56 | disposition home or self-care (01) ==
LOC: EMS 18:51
DX: E11.65 Type 2 diabetes mellitus with hyperglycemia (principal); F31.9 Bipolar disorder, unspecified; F20.9 Schizophrenia, unspecified; Z76.0 Encounter for issue of repeat prescription; Z90.49 Acquired absence of other specified parts of digestive tract; Z91.018 Allergy to other foods; Z79.4 Long term (current) use of insulin; Z79.84 Long term (current) use of oral hypoglycemic drugs
CPT/HCPCS: 82962; 96372; 99283; J1815

== ENCOUNTER 2019-08-17 20:20 | Inpatient (IN) | payer MEDICAID, OTHER ==
[~2019-08-17] VITALS: Ht 160 cm; Wt 63.0 kg
[~2019-08-17 20:20] MED LIST changes: -DSS100 PO; -FAMO20 PO; -FOLI1 PO; -LACT1POW8 MC; -METF-960 PO; -MULT-1239 PO; -THIA100T67 PO
[2019-08-18] VITALS (12 sets, daily range): BP systolic 107–129; BP diastolic 61–89
[2019-08-18] MEDS: ZOLPIDEM TARTRATE 10 MG TABLET PO PRN (03:58)
[2019-08-18] MEDS: LORazepam 2 MG TABLET PO PRN ×3 (03:58→13:47)
[2019-08-18] MEDS ORDERED: PNEUMOCOCCAL VACCINE POLYVALENT 0.5 ML VIAL [PPSV23] IM ONE (05:45)
[2019-08-18] MEDS ORDERED: INFLUENZA VIRUS VACCINE QVS 2019-20 (3YR+)/PF 60 MCG/0.5 ML SYRINGE IM ONE (05:45)
[2019-08-18] MEDS ORDERED: MAGNESIUM HYDROXIDE SUSPENSION 30 ML UDCUP PO PRN (08:45)
[2019-08-18] MEDS ORDERED: CloNIDine HCL 0.1 MG TABLET PO PRN (08:45)
[2019-08-18] MEDS ORDERED: ACETAMINOPHEN 325 MG TABLET PO PRN (08:45)
[2019-08-18] MEDS ORDERED: DOCUSATE SODIUM 100 MG CAPSULE PO PRN (08:45)
[2019-08-18] MEDS ORDERED: MAG HYDROX/AL HYDROX/SIMETH ES 30 ML SUSPENSION UDCUP PO PRN (08:45)
[2019-08-18] MEDS ORDERED: BENZOCAINE/MENTHOL LOZENGE MM PRN (08:45)
[2019-08-18] MEDS ORDERED: ONDANSETRON HCL 4 MG TABLET PO PRN (08:45)
[2019-08-18] MEDS ORDERED: ALBUTEROL SULFATE HFA 90 MCG/PUFF 8 GM INHALER IH PRN (08:45)
[2019-08-18] MEDS ORDERED: DEXTROSE 50%-WATER 25 GM/50 ML SYRINGE IVP PRN (08:45)
[2019-08-18] MEDS ORDERED: PETROLATUM,WHITE 28 GM JELLY TP PRN (08:45)
[2019-08-18] MEDS ORDERED: OMEPRAZOLE 20 MG CAPSULE PO PRN (08:45)
[2019-08-18] MEDS ORDERED: BACITRACIN 28.4 GM OINTMENT TP PRN (08:45)
[2019-08-18] MEDS: INSULIN GLARGINE,HUM.REC.ANLOG 100 UNITS/ML SQ SCH ×2 (09:42→16:35)
[2019-08-18] MEDS ORDERED: CYANOCOBALAMIN 1,000 MCG/ML VIAL IM ONE (09:45)
[2019-08-18] MEDS ORDERED: GuaiFENesin/D-METHORPHAN [SUGAR-FREE] 200-20MG/10 ML SYRUP UDCUP PO PRN (09:45)
[2019-08-18] MEDS ORDERED: HydrOXYzine PAMOATE 50 MG CAPSULE PO PRN (09:45)
[2019-08-18 09:56] LABS: GLUCOMETER DEV NAME(LOC) BV2S.; GLUCOSE,POINT OF CARE 214 MG/DL (70-110)
[2019-08-18] MEDS: MULTIVITAMINS WITH MINERALS, THERAPEUTIC TABLET PO SCH (10:38)
[2019-08-18] MEDS: FOLIC ACID 1 MG TABLET PO SCH (10:38)
[2019-08-18] MEDS: THIAMINE HCL 100 MG TABLET PO SCH ×2 (10:38→16:13)
[2019-08-18] MEDS: INSULIN LISPRO 100 UNITS/ML SQ PRN ×2 (11:00→20:34)
[2019-08-18 11:45] LABS: GLUCOMETER DEV NAME(LOC) BV2S.; GLUCOSE,POINT OF CARE 213 MG/DL (70-110)
[2019-08-18] MEDS: GABAPENTIN 100 MG CAPSULE PO SCH ×2 (12:52→16:13)
[2019-08-18] MEDS: LevETIRAcetam 250 MG TABLET PO SCH ×2 (13:07→16:14)
[2019-08-18] MEDS: METHOCARBAMOL 500 MG TABLET PO SCH ×2 (13:08→16:13)
[2019-08-18] MEDS: MetFORMIN HCL 850 MG TABLET PO SCH (16:13)
[2019-08-18 16:46] LABS: GLUCOMETER DEV NAME(LOC) BV2S.; GLUCOSE,POINT OF CARE 298 MG/DL (70-110)
[2019-08-18 20:30] LABS: GLUCOMETER DEV NAME(LOC) BV2S.; GLUCOSE,POINT OF CARE 173 MG/DL (70-110)
[2019-08-18] MEDS ORDERED: GLUCAGON,HUMAN RECOMBINANT 1 MG VIAL IM PRN (21:00)
[2019-08-18] MEDS ORDERED: MIRTAZAPINE 15 MG TABLET PO SCH (21:00)
[2019-08-19] VITALS (7 sets, daily range): BP systolic 111–140; BP diastolic 68–82
[2019-08-19] MEDS: LORazepam 2 MG TABLET PO PRN (01:21)
[2019-08-19] MEDS: IBUPROFEN 600 MG TABLET PO PRN (01:22)
[2019-08-19] MEDS ORDERED: LORazepam 2 MG TABLET PO PRN (07:00)
[2019-08-19] MEDS: MetFORMIN HCL 850 MG TABLET PO SCH ×2 (07:00→16:41)
[2019-08-19 07:19] LABS: GLUCOMETER DEV NAME(LOC) BV2S.; GLUCOSE,POINT OF CARE 75 MG/DL (70-110)
[2019-08-19] MEDS: GABAPENTIN 100 MG CAPSULE PO SCH ×3 (08:40→16:41)
[2019-08-19] MEDS: MULTIVITAMINS WITH MINERALS, THERAPEUTIC TABLET PO SCH (08:40)
[2019-08-19] MEDS: FOLIC ACID 1 MG TABLET PO SCH (08:40)
[2019-08-19] MEDS: THIAMINE HCL 100 MG TABLET PO SCH ×2 (08:40→16:42)
[2019-08-19] MEDS: LORazepam 2 MG TABLET PO SCH ×4 (08:40→20:26)
[2019-08-19] MEDS: LevETIRAcetam 250 MG TABLET PO SCH ×2 (08:41→16:42)
[2019-08-19] MEDS: METHOCARBAMOL 500 MG TABLET PO SCH ×2 (08:41→16:41)
[2019-08-19] MEDS: INSULIN GLARGINE,HUM.REC.ANLOG 100 UNITS/ML SQ SCH ×2 (08:51→16:50)
[2019-08-19 09:11] LABS: GLUCOMETER DEV NAME(LOC) BV2S.; GLUCOSE,POINT OF CARE 198 MG/DL (70-110)
[2019-08-19] MEDS: INSULIN LISPRO 100 UNITS/ML SQ PRN ×2 (10:56→20:29)
[2019-08-19 11:51] LABS: GLUCOMETER DEV NAME(LOC) BV2S.; GLUCOSE,POINT OF CARE 156 MG/DL (70-110)
[2019-08-19] MEDS: LOPERAMIDE HCL 2 MG CAPSULE PO PRN (14:30)
[2019-08-19] MEDS: MIRTAZAPINE 30 MG TABLET PO SCH (20:26)
[2019-08-19 21:01] LABS: GLUCOMETER DEV NAME(LOC) BV2S.; GLUCOSE,POINT OF CARE 206 MG/DL (70-110)
[2019-08-19 21:01] LABS: GLUCOMETER DEV NAME(LOC) BV2S.; GLUCOSE,POINT OF CARE 119 MG/DL (70-110)
[2019-08-20] VITALS (7 sets, daily range): BP systolic 102–129; BP diastolic 66–79
[2019-08-20] MEDS: ZOLPIDEM TARTRATE 10 MG TABLET PO PRN (01:33)
[2019-08-20] MEDS: QUEtiapine FUMARATE 100 MG TABLET PO PRN (01:33)
[2019-08-20 06:26] LABS: GLUCOMETER DEV NAME(LOC) BV2S.; GLUCOSE,POINT OF CARE 107 MG/DL (70-110)
[2019-08-20] MEDS: MetFORMIN HCL 850 MG TABLET PO SCH ×2 (07:00→16:15)
[2019-08-20] MEDS: THIAMINE HCL 100 MG TABLET PO SCH ×2 (08:37→16:14)
[2019-08-20] MEDS: LevETIRAcetam 250 MG TABLET PO SCH ×2 (08:37→16:15)
[2019-08-20] MEDS: LORazepam 2 MG TABLET PO SCH ×4 (08:37→20:34)
[2019-08-20] MEDS: FOLIC ACID 1 MG TABLET PO SCH (08:37)
[2019-08-20] MEDS: MULTIVITAMINS WITH MINERALS, THERAPEUTIC TABLET PO SCH (08:37)
[2019-08-20] MEDS: METHOCARBAMOL 500 MG TABLET PO SCH ×2 (08:38→16:15)
[2019-08-20] MEDS: GABAPENTIN 100 MG CAPSULE PO SCH ×3 (08:38→16:15)
[2019-08-20] MEDS: INSULIN GLARGINE,HUM.REC.ANLOG 100 UNITS/ML SQ SCH ×2 (09:39→16:37)
[2019-08-20 09:41] LABS: GLUCOMETER DEV NAME(LOC) BV2S.; GLUCOSE,POINT OF CARE 195 MG/DL (70-110)
[2019-08-20] MEDS: IBUPROFEN 600 MG TABLET PO PRN (10:51)
[2019-08-20] MEDS: INSULIN LISPRO 100 UNITS/ML SQ PRN ×2 (12:01→21:14)
[2019-08-20 12:07] LABS: GLUCOMETER DEV NAME(LOC) BV2S.; GLUCOSE,POINT OF CARE 227 MG/DL (70-110)
[2019-08-20 16:30] LABS: GLUCOMETER DEV NAME(LOC) BV2S.; GLUCOSE,POINT OF CARE 236 MG/DL (70-110)
[2019-08-20] MEDS ORDERED: TraMADol HCL 50 MG TABLET PO PRN (19:30)
[2019-08-20] MEDS: MIRTAZAPINE 30 MG TABLET PO SCH (20:34)
[2019-08-20] MEDS: TraZODone HCL 100 MG TABLET PO SCH (20:34)
[2019-08-20 21:11] LABS: GLUCOMETER DEV NAME(LOC) BV2S.; GLUCOSE,POINT OF CARE 223 MG/DL (70-110)
[2019-08-21 00:15] VITALS: BP 116/71
[2019-08-21 06:36] LABS: GLUCOMETER DEV NAME(LOC) BV2S.; GLUCOSE,POINT OF CARE 154 MG/DL (70-110)
[2019-08-21] MEDS: INSULIN LISPRO 100 UNITS/ML SQ PRN ×2 (06:36→11:15)
[2019-08-21] MEDS: MetFORMIN HCL 850 MG TABLET PO SCH ×2 (06:36→17:11)
[2019-08-21] MEDS ORDERED: LORazepam 1 MG TABLET PO PRN (07:00)
[2019-08-21 08:09] LABS: BASOPHILS % (AUTO) 0.7 % (0.0-2.0); EOSINOPHILS % (AUTO) 1.8 % (1.0-6.0); HEMATOCRIT 35.3 % (41-53); HEMOGLOBIN 11.3 g/dL (13.5-17.5); LYMPHOCYTES # (AUTO) 1.5 K/uL (1.0-4.8); LYMPHOCYTES % (AUTO) 27.9 % (22.0-44.0); MEAN CORPUSCULAR HEMOGLOBIN 25.5 pg (26.0-34.0); MEAN CORPUSCULAR VOLUME 80 fL (80-100); MONOCYTES # (AUTO) 0.3 K/uL (0.1-1.0); MONOCYTES % (AUTO) 5.4 % (2.0-9.0); NEUTROPHILS # (AUTO) 3.4 K/uL (1.8-7.7); NEUTROPHILS % (AUTO) 64.2 % (40.0-70.0); PLATELET COUNT (AUTO) 185 K/uL (150-450); RED BLOOD CELL COUNT(AUTO) 4.42 MIL/uL (4.50-5.90)
[2019-08-21 08:13] VITALS: BP 114/76
[2019-08-21 08:15] LABS: HEMOGLOBIN A1C 7.6 % (4.5-6.2)
[2019-08-21 08:38] LABS: ALANINE AMINOTRANSFERASE 45 U/L (12-78); ALBUMIN 2.4 g/dL (3.4-5.0); ALKALINE PHOSPHATASE 537 U/L (46-116); ANION GAP 9 mmol/L (8-16); ASPARTATE AMINOTRANSFERASE 45 U/L (15-37); BILIRUBIN,TOTAL 0.4 mg/dL (0.1-1.0); CALCIUM, TOTAL 8.5 mg/dL (8.8-10.5); CARBON DIOXIDE 25 mmol/L (22-29); CHLORIDE 104 mmol/L (98-107); CHOL/HDL RATIO 1.6 (4.2-7.3); CHOLESTEROL 131 mg/dL (131-200); CREATININE 0.65 mg/dL (0.60-1.30); FREE T4 (FREE THYROXINE) 0.91 ng/dL (0.76-1.46); GLOMERULAR FILTR. RATE CALC > 60 mL/min (>60); GLUCOSE,RANDOM 169 mg/dL (70-110); HDL CHOLESTEROL 83 mg/dL (40-60); LDL CHOL (CALC.) 36 mg/dL (0-130); POTASSIUM 3.5 mmol/L (3.5-5.1); SODIUM SERUM 138 mmol/L (136-145); THYROID STIMULATING HORMONE 0.45 uIU/mL (0.36-3.74); TOTAL PROTEIN, SERUM 6.6 g/dL (6.4-8.2); TRIGLYCERIDES 58 mg/dL (15-150); UREA NITROGEN, BLOOD 5 mg/dL (7-18)
[2019-08-21] MEDS: FOLIC ACID 1 MG TABLET PO SCH (08:38)
[2019-08-21] MEDS: MULTIVITAMINS WITH MINERALS, THERAPEUTIC TABLET PO SCH (08:38)
[2019-08-21] MEDS: THIAMINE HCL 100 MG TABLET PO SCH ×2 (08:38→17:11)
[2019-08-21] MEDS: METHOCARBAMOL 500 MG TABLET PO SCH ×2 (08:38→17:11)
[2019-08-21] MEDS: LORazepam 1 MG TABLET PO SCH ×4 (08:38→20:11)
[2019-08-21] MEDS: GABAPENTIN 100 MG CAPSULE PO SCH ×3 (08:38→17:11)
[2019-08-21] MEDS: LevETIRAcetam 250 MG TABLET PO SCH ×2 (08:39→17:11)
[2019-08-21] MEDS: INSULIN GLARGINE,HUM.REC.ANLOG 100 UNITS/ML SQ SCH ×2 (08:50→17:14)
[2019-08-21 09:06] LABS: GLUCOMETER DEV NAME(LOC) BV2S.; GLUCOSE,POINT OF CARE 159 MG/DL (70-110)
[2019-08-21 11:26] LABS: GLUCOMETER DEV NAME(LOC) BV2S.; GLUCOSE,POINT OF CARE 180 MG/DL (70-110)
[2019-08-21 12:22] VITALS: BP 132/87
[2019-08-21] MEDS: LOPERAMIDE HCL 2 MG CAPSULE PO PRN (12:22)
[2019-08-21] MEDS: TraMADol HCL 50 MG TABLET PO PRN (12:22)
[2019-08-21 12:57] VITALS: BP 114/76
[2019-08-21 16:10] VITALS: BP 127/72
[2019-08-21] MEDS ORDERED: INSULIN LISPRO 100 UNITS/ML SQ ONE (17:15)
[2019-08-21 17:44] VITALS: BP 127/72
[2019-08-21 18:41] LABS: GLUCOMETER DEV NAME(LOC) BV2S.; GLUCOSE,POINT OF CARE 420 MG/DL (70-110)
[2019-08-21 18:41] LABS: GLUCOMETER DEV NAME(LOC) BV2S.; GLUCOSE,POINT OF CARE 250 MG/DL (70-110)
[2019-08-21] MEDS: TraZODone HCL 100 MG TABLET PO SCH (20:11)
[2019-08-21] MEDS: MIRTAZAPINE 15 MG TABLET PO SCH (20:12)
[2019-08-21 20:35] LABS: GLUCOMETER DEV NAME(LOC) BV2S.; GLUCOSE,POINT OF CARE 111 MG/DL (70-110)
[2019-08-22 00:43] VITALS: BP 117/72
[2019-08-22 06:35] LABS: GLUCOMETER DEV NAME(LOC) BV2S.; GLUCOSE,POINT OF CARE 133 MG/DL (70-110)
[2019-08-22] MEDS: MetFORMIN HCL 850 MG TABLET PO SCH ×2 (07:00→17:03)
[2019-08-22] MEDS: THIAMINE HCL 100 MG TABLET PO SCH ×2 (08:14→17:03)
[2019-08-22] MEDS: FOLIC ACID 1 MG TABLET PO SCH (08:14)
[2019-08-22] MEDS: METHOCARBAMOL 500 MG TABLET PO SCH ×2 (08:14→17:02)
[2019-08-22] MEDS: MULTIVITAMINS WITH MINERALS, THERAPEUTIC TABLET PO SCH (08:14)
[2019-08-22] MEDS: GABAPENTIN 100 MG CAPSULE PO SCH ×3 (08:14→17:03)
[2019-08-22] MEDS: LevETIRAcetam 250 MG TABLET PO SCH ×2 (08:14→17:03)
[2019-08-22 08:20] VITALS: BP 127/88
[2019-08-22] MEDS: INSULIN GLARGINE,HUM.REC.ANLOG 100 UNITS/ML SQ SCH ×2 (08:27→17:09)
[2019-08-22] MEDS: NALTREXONE HCL 50 MG TABLET PO SCH (10:16)
[2019-08-22] MEDS: LORazepam 1 MG TABLET PO PRN ×2 (10:51→18:36)
[2019-08-22] MEDS: INSULIN LISPRO 100 UNITS/ML SQ PRN ×3 (10:57→20:51)
[2019-08-22 11:10] LABS: GLUCOMETER DEV NAME(LOC) BV2S.; GLUCOSE,POINT OF CARE 253 MG/DL (70-110)
[2019-08-22 16:00] VITALS: BP 107/73
[2019-08-22 16:41] LABS: GLUCOMETER DEV NAME(LOC) BV2S.; GLUCOSE,POINT OF CARE 367 MG/DL (70-110)
[2019-08-22 20:11] VITALS: BP 126/84
[2019-08-22] MEDS: TraMADol HCL 50 MG TABLET PO PRN (20:11)
[2019-08-22] MEDS: TraZODone HCL 100 MG TABLET PO SCH (20:43)
[2019-08-22] MEDS: ZOLPIDEM TARTRATE 10 MG TABLET PO PRN (20:44)
[2019-08-22] MEDS: MIRTAZAPINE 15 MG TABLET PO SCH (20:44)
[2019-08-22 21:00] LABS: GLUCOMETER DEV NAME(LOC) BV2S.; GLUCOSE,POINT OF CARE 258 MG/DL (70-110)
[2019-08-23 00:32] VITALS: BP 109/68
[2019-08-23 06:07] LABS: GLUCOMETER DEV NAME(LOC) BV2S.; GLUCOSE,POINT OF CARE 141 MG/DL (70-110)
[2019-08-23] MEDS: MetFORMIN HCL 500 MG TABLET PO SCH ×2 (07:04→16:22)
[2019-08-23] MEDS: INSULIN LISPRO 100 UNITS/ML SQ PRN ×4 (07:05→20:59)
[2019-08-23 08:15] VITALS: BP 124/84
[2019-08-23] MEDS: LevETIRAcetam 250 MG TABLET PO SCH ×2 (08:35→16:22)
[2019-08-23] MEDS: GABAPENTIN 100 MG CAPSULE PO SCH ×3 (08:35→16:22)
[2019-08-23] MEDS: MULTIVITAMINS WITH MINERALS, THERAPEUTIC TABLET PO SCH (08:35)
[2019-08-23] MEDS: FOLIC ACID 1 MG TABLET PO SCH (08:35)
[2019-08-23] MEDS: THIAMINE HCL 100 MG TABLET PO SCH ×2 (08:35→18:53)
[2019-08-23] MEDS: METHOCARBAMOL 500 MG TABLET PO SCH ×2 (08:35→18:51)
[2019-08-23] MEDS: NALTREXONE HCL 50 MG TABLET PO SCH (08:35)
[2019-08-23] MEDS: INSULIN GLARGINE,HUM.REC.ANLOG 100 UNITS/ML SQ SCH ×2 (08:44→16:35)
[2019-08-23] MEDS ORDERED: NALT50TA6 PO (08:56)
[2019-08-23] MEDS ORDERED: MIRT15 PO (09:10)
[2019-08-23] MEDS ORDERED: GABA-529 PO (09:10)
[2019-08-23] MEDS ORDERED: METF-960 PO (09:10)
[2019-08-23] MEDS ORDERED: FOLI1 PO (09:10)
[2019-08-23 11:11] LABS: GLUCOMETER DEV NAME(LOC) BV2S.; GLUCOSE,POINT OF CARE 222 MG/DL (70-110)
[2019-08-23] MEDS: QUEtiapine FUMARATE 100 MG TABLET PO PRN (12:25)
[2019-08-23 14:00] LABS: GLUCOMETER DEV NAME(LOC) BV2S.; GLUCOSE,POINT OF CARE 314 MG/DL (70-110)
[2019-08-23 16:09] VITALS: BP 108/87
[2019-08-23 16:42] LABS: GLUCOMETER DEV NAME(LOC) BV2S.; GLUCOSE,POINT OF CARE 270 MG/DL (70-110)
[2019-08-23] MEDS: TraZODone HCL 100 MG TABLET PO SCH (20:13)
[2019-08-23] MEDS: MIRTAZAPINE 15 MG TABLET PO SCH (20:14)
[2019-08-23 20:26] LABS: GLUCOMETER DEV NAME(LOC) BV2S.; GLUCOSE,POINT OF CARE 307 MG/DL (70-110)
[2019-08-23] MEDS: ZOLPIDEM TARTRATE 10 MG TABLET PO PRN (22:31)
[2019-08-24 00:42] VITALS: BP 126/80
[2019-08-24] MEDS: QUEtiapine FUMARATE 100 MG TABLET PO PRN (01:06)
[2019-08-24 06:37] LABS: GLUCOMETER DEV NAME(LOC) BV2S.; GLUCOSE,POINT OF CARE 163 MG/DL (70-110)
[2019-08-24] MEDS: MetFORMIN HCL 500 MG TABLET PO SCH ×2 (06:55→16:43)
[2019-08-24] MEDS: INSULIN LISPRO 100 UNITS/ML SQ PRN ×4 (06:59→20:29)
[2019-08-24 08:09] VITALS: BP 114/74
[2019-08-24] MEDS: THIAMINE HCL 100 MG TABLET PO SCH ×2 (08:15→16:43)
[2019-08-24] MEDS: METHOCARBAMOL 500 MG TABLET PO SCH ×2 (08:15→16:43)
[2019-08-24] MEDS: NALTREXONE HCL 50 MG TABLET PO SCH (08:15)
[2019-08-24] MEDS: GABAPENTIN 100 MG CAPSULE PO SCH ×3 (08:15→16:43)
[2019-08-24] MEDS: LevETIRAcetam 250 MG TABLET PO SCH ×2 (08:15→16:43)
[2019-08-24] MEDS: FOLIC ACID 1 MG TABLET PO SCH (08:15)
[2019-08-24] MEDS: MULTIVITAMINS WITH MINERALS, THERAPEUTIC TABLET PO SCH (08:15)
[2019-08-24] MEDS: INSULIN GLARGINE,HUM.REC.ANLOG 100 UNITS/ML SQ SCH ×2 (08:26→16:42)
[2019-08-24 11:06] LABS: GLUCOMETER DEV NAME(LOC) BV2S.; GLUCOSE,POINT OF CARE 218 MG/DL (70-110)
[2019-08-24 16:33] VITALS: BP 134/92
[2019-08-24 17:16] LABS: GLUCOMETER DEV NAME(LOC) BV2S.; GLUCOSE,POINT OF CARE 299 MG/DL (70-110)
[2019-08-24] MEDS: TraZODone HCL 100 MG TABLET PO SCH (20:19)
[2019-08-24] MEDS: MIRTAZAPINE 15 MG TABLET PO SCH (20:19)
[2019-08-24 20:46] LABS: GLUCOMETER DEV NAME(LOC) BV2S.; GLUCOSE,POINT OF CARE 281 MG/DL (70-110)
[2019-08-25 06:25] VITALS: BP 121/77
[2019-08-25 06:31] LABS: GLUCOMETER DEV NAME(LOC) BV2S.; GLUCOSE,POINT OF CARE 117 MG/DL (70-110)
[2019-08-25] MEDS: MetFORMIN HCL 500 MG TABLET PO SCH ×2 (06:41→16:48)
[2019-08-25] MEDS: GABAPENTIN 100 MG CAPSULE PO SCH ×3 (08:05→16:48)
[2019-08-25] MEDS: FOLIC ACID 1 MG TABLET PO SCH (08:05)
[2019-08-25] MEDS: THIAMINE HCL 100 MG TABLET PO SCH ×2 (08:05→16:48)
[2019-08-25] MEDS: MULTIVITAMINS WITH MINERALS, THERAPEUTIC TABLET PO SCH (08:05)
[2019-08-25] MEDS: LevETIRAcetam 250 MG TABLET PO SCH ×2 (08:05→16:48)
[2019-08-25] MEDS: NALTREXONE HCL 50 MG TABLET PO SCH (08:05)
[2019-08-25] MEDS: METHOCARBAMOL 500 MG TABLET PO SCH ×2 (08:05→16:48)
[2019-08-25] MEDS: INSULIN GLARGINE,HUM.REC.ANLOG 100 UNITS/ML SQ SCH ×2 (08:17→16:38)
[2019-08-25 08:26] VITALS: BP 129/90
[2019-08-25] MEDS: INSULIN LISPRO 100 UNITS/ML SQ PRN ×3 (10:49→20:24)
[2019-08-25 11:06] LABS: GLUCOMETER DEV NAME(LOC) BV2S.; GLUCOSE,POINT OF CARE 241 MG/DL (70-110)
[2019-08-25] MEDS: QUEtiapine FUMARATE 100 MG TABLET PO PRN ×2 (14:31→20:48)
[2019-08-25 16:10] VITALS: BP 109/71
[2019-08-25 16:46] LABS: GLUCOMETER DEV NAME(LOC) BV2S.; GLUCOSE,POINT OF CARE 232 MG/DL (70-110)
[2019-08-25] MEDS: TraZODone HCL 100 MG TABLET PO SCH (20:48)
[2019-08-25] MEDS: MIRTAZAPINE 15 MG TABLET PO SCH (20:48)
[2019-08-25 20:51] LABS: GLUCOMETER DEV NAME(LOC) BV2S.; GLUCOSE,POINT OF CARE 308 MG/DL (70-110)
[2019-08-26 05:42] VITALS: BP 110/74
[2019-08-26 06:31] LABS: GLUCOMETER DEV NAME(LOC) BV2S.; GLUCOSE,POINT OF CARE 161 MG/DL (70-110)
[2019-08-26] MEDS: MetFORMIN HCL 500 MG TABLET PO SCH ×2 (06:51→16:59)
[2019-08-26] MEDS: INSULIN LISPRO 100 UNITS/ML SQ PRN ×3 (06:52→16:34)
[2019-08-26] MEDS: GABAPENTIN 100 MG CAPSULE PO SCH ×3 (08:14→16:59)
[2019-08-26] MEDS: LevETIRAcetam 250 MG TABLET PO SCH ×2 (08:15→16:58)
[2019-08-26] MEDS: FOLIC ACID 1 MG TABLET PO SCH (08:15)
[2019-08-26] MEDS: THIAMINE HCL 100 MG TABLET PO SCH ×2 (08:15→16:59)
[2019-08-26] MEDS: METHOCARBAMOL 500 MG TABLET PO SCH ×2 (08:15→16:59)
[2019-08-26] MEDS: MULTIVITAMINS WITH MINERALS, THERAPEUTIC TABLET PO SCH (08:15)
[2019-08-26] MEDS: NALTREXONE HCL 50 MG TABLET PO SCH (08:15)
[2019-08-26] MEDS: INSULIN GLARGINE,HUM.REC.ANLOG 100 UNITS/ML SQ SCH ×2 (08:19→16:39)
[2019-08-26 08:34] VITALS: BP 122/83
[2019-08-26 11:06] LABS: GLUCOMETER DEV NAME(LOC) BV2S.; GLUCOSE,POINT OF CARE 219 MG/DL (70-110)
[2019-08-26] MEDS: QUEtiapine FUMARATE 100 MG TABLET PO PRN ×2 (13:54→21:05)
[2019-08-26 16:20] VITALS: BP 102/65
[2019-08-26 16:56] LABS: GLUCOMETER DEV NAME(LOC) BV2S.; GLUCOSE,POINT OF CARE 260 MG/DL (70-110)
[2019-08-26 21:00] LABS: GLUCOMETER DEV NAME(LOC) BV2S.; GLUCOSE,POINT OF CARE 123 MG/DL (70-110)
[2019-08-26] MEDS: MIRTAZAPINE 15 MG TABLET PO SCH (21:05)
[2019-08-26] MEDS: TraZODone HCL 100 MG TABLET PO SCH (21:05)
[2019-08-26] MEDS: ZOLPIDEM TARTRATE 10 MG TABLET PO PRN (22:31)
[2019-08-27 00:25] VITALS: BP 107/60
[2019-08-27] MEDS: MetFORMIN HCL 500 MG TABLET PO SCH (06:56)
[2019-08-27 07:01] LABS: GLUCOMETER DEV NAME(LOC) BV2S.; GLUCOSE,POINT OF CARE 106 MG/DL (70-110)
[2019-08-27 08:12] VITALS: BP 107/78
[2019-08-27] MEDS: THIAMINE HCL 100 MG TABLET PO SCH (08:19)
[2019-08-27] MEDS: FOLIC ACID 1 MG TABLET PO SCH (08:19)
[2019-08-27] MEDS: NALTREXONE HCL 50 MG TABLET PO SCH (08:19)
[2019-08-27] MEDS: GABAPENTIN 100 MG CAPSULE PO SCH (08:19)
[2019-08-27] MEDS: LevETIRAcetam 250 MG TABLET PO SCH (08:19)
[2019-08-27] MEDS: MULTIVITAMINS WITH MINERALS, THERAPEUTIC TABLET PO SCH (08:19)
[2019-08-27] MEDS: METHOCARBAMOL 500 MG TABLET PO SCH (08:19)
[2019-08-27] MEDS: INSULIN GLARGINE,HUM.REC.ANLOG 100 UNITS/ML SQ SCH (08:22)
[2019-08-27] MEDS: INSULIN LISPRO 100 UNITS/ML SQ PRN (11:20)
[2019-08-27 11:26] LABS: GLUCOMETER DEV NAME(LOC) BV2S.; GLUCOSE,POINT OF CARE 187 MG/DL (70-110)
[2019-08-27] MEDS ORDERED: MULT-1203 PO (11:38)
[2019-08-27] MEDS ORDERED: THIA100T75 PO (11:39)
== END 2019-08-27 12:30 | disposition home or self-care (01) | DRG 751 ==
LOC: B2S 08-18 03:21
PROVIDERS: ADMIT Psychiatry & Neurology Psychiatry; ATTEND Psychiatry & Neurology Psychiatry
DX: F33.2 Major depressive disorder, recurrent severe without psychotic features (principal); F10.231 Alcohol dependence with withdrawal delirium; R45.851 Suicidal ideations; E11.9 Type 2 diabetes mellitus without complications; G40.909 Epilepsy, unspecified, not intractable, without status epilepticus; F41.9 Anxiety disorder, unspecified; K21.9 Gastro-esophageal reflux disease without esophagitis; G47.00 Insomnia, unspecified; F19.90 Other psychoactive substance use, unspecified, uncomplicated; M54.5 Low back pain; Z79.899 Other long term (current) drug therapy; Z59.0 Homelessness; Z91.19 Patient's noncompliance with other medical treatment and regimen; Z91.5 Personal history of self-harm
CPT/HCPCS: 83036; 84439; 84443; 90686; 90732; J1815; J3420; Q0162

== ENCOUNTER 2019-09-26 17:46 | Inpatient (IN) | payer MEDICAID, OTHER ==
[~2019-09-26] VITALS: Ht 157.5 cm; Wt 67.1 kg
[~2019-09-26 17:46] MED LIST changes: -BUPR-93 PO; -BUSP10TA23 PO; +GABA-529 PO; -METF-445 PO; +METF-960 PO; +MIRT15 PO; +MULT-1203 PO; +NALT50TA6 PO; -PRAZ1 PO; -QUET300T2 PO; +THIA100T75 PO
[2019-09-26] MEDS ORDERED: QUET50TA PO (18:48)
[2019-09-26] MEDS ORDERED: DIAZ2 PO (18:48)
[2019-09-26] MEDS ORDERED: SERT100T12 PO (18:48)
[2019-09-26] MEDS ORDERED: INSU100C14 SQ (18:48)
[2019-09-26] MEDS ORDERED: TRAZ-252 PO (18:48)
[2019-09-26 19:02] LABS: BASOPHILS % (AUTO) 0.4 % (0.0-2.0); EOSINOPHILS % (AUTO) 0.5 % (1.0-6.0); HEMATOCRIT 41.3 % (41-53); HEMOGLOBIN 13.4 g/dL (13.5-17.5); LYMPHOCYTES # (AUTO) 2.6 K/uL (1.0-4.8); LYMPHOCYTES % (AUTO) 45.8 % (22.0-44.0); MEAN CORPUSCULAR HGB CONC 32.4 G/dL (31.0-37.0); MEAN CORPUSCULAR VOLUME 77 fL (80-100); MONOCYTES # (AUTO) 0.1 K/uL (0.1-1.0); MONOCYTES % (AUTO) 2.3 % (2.0-9.0); NEUTROPHILS # (AUTO) 2.9 K/uL (1.8-7.7); PLATELET COUNT (AUTO) 314 K/uL (150-450); RED BLOOD CELL COUNT(AUTO) 5.36 MIL/uL (4.50-5.90); RED CELL DISTRIBUTION WIDTH 18.9 % (11.5-14.5)
[2019-09-26 19:05] LABS: APPEARANCE,URINE CLEAR (CLEAR); BILIRUBIN,URINE NEGATIVE (NEGATIVE); GLUCOSE, URINE (UA) 250 mg/dL (NEGATIVE); KETONES,URINE NEGATIVE (NEGATIVE); LEUKOCYTE ESTERASE ,URINE NEGATIVE (NEGATIVE); NITRATE,URINE NEGATIVE (NEGATIVE); OCCULT BLOOD,URINE NEGATIVE (NEGATIVE); PROTEIN,URINE NEGATIVE (NEGATIVE); UROBILINOGEN,URINE 0.2 mg/dL (<=1.0)
[2019-09-26 19:11] LABS: AMPHET/METH SCREEN,URINE NEGATIVE (NEGATIVE); BARBITURATE SCREEN, URINE NEGATIVE (NEGATIVE); BENZODIAZEPINES SCREEN,URINE POSITIVE (NEGATIVE); CANNABINOID SCREEN,URINE NEGATIVE (NEGATIVE); COCAINE SCREEN,URINE NEGATIVE (NEGATIVE); METHADONE SCREEN, URINE NEGATIVE (NEGATIVE); OPIATE SCREEN,URINE NEGATIVE (NEGATIVE)
[2019-09-26 19:12] LABS: PHENCYCLIDINE SCREEN,URINE NEGATIVE (NEGATIVE)
[2019-09-26 19:14] LABS: BACTERIA,URINE None Seen /HPF (None Seen); RBC,URINE 0-2 /HPF (0-2); WBC,URINE 0-2 /HPF (0-5)
[2019-09-26 19:15] LABS: SQUAMOUS EPITHELIAL CELL,UR None Seen /LPF (None Seen)
[2019-09-26] MEDS ORDERED: ZOLPIDEM TARTRATE 10 MG TABLET PO PRN (19:15)
[2019-09-26 19:30] LABS: ANION GAP 12 mmol/L (8-16); CALCIUM, TOTAL 8.6 mg/dL (8.8-10.5); CARBON DIOXIDE 25 mmol/L (22-29); CHLORIDE 106 mmol/L (98-107); CREATININE 0.96 mg/dL (0.60-1.30); GLOMERULAR FILTR. RATE CALC > 60 mL/min (>60); GLUCOSE,RANDOM 244 mg/dL (70-110); POTASSIUM 3.6 mmol/L (3.5-5.1); SODIUM SERUM 143 mmol/L (136-145); UREA NITROGEN, BLOOD 9 mg/dL (7-18)
[2019-09-26 19:49] LABS: B-TYPE NATRIURETIC PEPTIDE 9 pg/mL (0-100)
[2019-09-26 19:55] LABS: ALANINE AMINOTRANSFERASE 65 U/L (12-78); ALBUMIN 3.2 g/dL (3.4-5.0); ALKALINE PHOSPHATASE 380 U/L (46-116); ASPARTATE AMINOTRANSFERASE 24 U/L (15-37); BILIRUBIN,TOTAL 0.3 mg/dL (0.1-1.0); CREATINE KINASE, TOTAL ONLY 77 U/L (39-308)
[2019-09-27] VITALS (10 sets, daily range): BP systolic 117–138; BP diastolic 77–93
[2019-09-27 03:17] LABS: CHOL/HDL RATIO 2.5 (4.2-7.3)
[2019-09-27] MEDS: LORazepam 2 MG TABLET PO PRN ×3 (04:28→16:15)
[2019-09-27] MEDS: HALOPERIDOL 5 MG TABLET PO PRN ×2 (04:31→10:26)
[2019-09-27] MEDS ORDERED: LORazepam 2 MG TABLET PO PRN (10:30)
[2019-09-27] MEDS ORDERED: ALBUTEROL SULFATE HFA 90 MCG/PUFF 8 GM INHALER IH PRN (10:45)
[2019-09-27] MEDS ORDERED: NICOTINE 14 MG/24 HOUR PATCH TD PRN (10:45)
[2019-09-27] MEDS ORDERED: GLUCAGON,HUMAN RECOMBINANT 1 MG VIAL IM PRN (10:45)
[2019-09-27] MEDS ORDERED: MAGNESIUM HYDROXIDE SUSPENSION 30 ML UDCUP PO PRN (10:45)
[2019-09-27] MEDS ORDERED: ONDANSETRON HCL 4 MG TABLET PO PRN (10:45)
[2019-09-27] MEDS ORDERED: GuaiFENesin/D-METHORPHAN [SUGAR-FREE] 200-20MG/10 ML SYRUP UDCUP PO PRN (10:45)
[2019-09-27] MEDS ORDERED: CloNIDine HCL 0.1 MG TABLET PO PRN (10:45)
[2019-09-27] MEDS ORDERED: ACETAMINOPHEN 325 MG TABLET PO PRN (10:45)
[2019-09-27] MEDS ORDERED: IBUPROFEN 400 MG TABLET PO PRN (10:45)
[2019-09-27] MEDS ORDERED: LOPERAMIDE HCL 2 MG CAPSULE PO PRN (10:45)
[2019-09-27] MEDS ORDERED: DOCUSATE SODIUM 100 MG CAPSULE PO PRN (10:45)
[2019-09-27] MEDS ORDERED: PETROLATUM,WHITE 28 GM JELLY TP PRN (10:45)
[2019-09-27] MEDS ORDERED: MAG HYDROX/AL HYDROX/SIMETH ES 30 ML SUSPENSION UDCUP PO PRN (10:45)
[2019-09-27] MEDS: GABAPENTIN 100 MG CAPSULE PO SCH ×2 (13:27→16:14)
[2019-09-27] MEDS: LevETIRAcetam 250 MG TABLET PO SCH (16:14)
[2019-09-27 16:24] LABS: GLUCOMETER DEV NAME(LOC) 3E.C; GLUCOSE,POINT OF CARE 284 MG/DL (70-110)
[2019-09-27] MEDS: INSULIN LISPRO 100 UNITS/ML SQ PRN ×2 (17:22→20:31)
[2019-09-27] MEDS: INSULIN GLARGINE,HUM.REC.ANLOG 100 UNITS/ML SQ SCH (17:23)
[2019-09-27] MEDS: MetFORMIN HCL 500 MG TABLET PO SCH (17:28)
[2019-09-27] MEDS: MIRTAZAPINE 15 MG TABLET PO SCH (20:28)
[2019-09-27] MEDS: TraZODone HCL 100 MG TABLET PO SCH (20:28)
[2019-09-27 20:36] LABS: GLUCOMETER DEV NAME(LOC) 3E.C; GLUCOSE,POINT OF CARE 204 MG/DL (70-110)
[2019-09-28] VITALS (7 sets, daily range): BP systolic 111–130; BP diastolic 70–88
[2019-09-28 06:40] LABS: GLUCOMETER DEV NAME(LOC) 3E.C; GLUCOSE,POINT OF CARE 138 MG/DL (70-110)
[2019-09-28] MEDS: MetFORMIN HCL 500 MG TABLET PO SCH ×2 (06:43→16:35)
[2019-09-28] MEDS ORDERED: LORazepam 2 MG TABLET PO PRN (07:00)
[2019-09-28] MEDS: THIAMINE HCL 100 MG TABLET PO SCH (10:13)
[2019-09-28] MEDS: LevETIRAcetam 250 MG TABLET PO SCH ×2 (10:13→16:21)
[2019-09-28] MEDS: FOLIC ACID 1 MG TABLET PO SCH (10:13)
[2019-09-28] MEDS: GABAPENTIN 100 MG CAPSULE PO SCH ×3 (10:14→16:22)
[2019-09-28] MEDS: LORazepam 2 MG TABLET PO SCH ×4 (10:14→20:18)
[2019-09-28] MEDS: INSULIN GLARGINE,HUM.REC.ANLOG 100 UNITS/ML SQ SCH ×2 (10:25→19:47)
[2019-09-28 11:52] LABS: GLUCOMETER DEV NAME(LOC) 3E.C; GLUCOSE,POINT OF CARE 159 MG/DL (70-110)
[2019-09-28] MEDS: INSULIN LISPRO 100 UNITS/ML SQ PRN ×3 (11:52→22:50)
[2019-09-28] MEDS: HALOPERIDOL 5 MG TABLET PO PRN (12:15)
[2019-09-28] MEDS: MIRTAZAPINE 15 MG TABLET PO SCH (20:12)
[2019-09-28] MEDS: TraZODone HCL 100 MG TABLET PO SCH (20:12)
[2019-09-28 20:30] LABS: GLUCOMETER DEV NAME(LOC) 3E.C; GLUCOSE,POINT OF CARE 214 MG/DL (70-110)
[2019-09-28 20:31] LABS: GLUCOMETER DEV NAME(LOC) 3E.C; GLUCOSE,POINT OF CARE 271 MG/DL (70-110)
[2019-09-29 06:22] LABS: GLUCOMETER DEV NAME(LOC) 3E.C; GLUCOSE,POINT OF CARE 115 MG/DL (70-110)
[2019-09-29 06:44] VITALS: BP 123/82
[2019-09-29] MEDS: MetFORMIN HCL 500 MG TABLET PO SCH ×2 (07:04→17:10)
[2019-09-29] MEDS: HALOPERIDOL 5 MG TABLET PO PRN (08:09)
[2019-09-29] MEDS: LORazepam 2 MG TABLET PO SCH ×4 (08:09→20:35)
[2019-09-29] MEDS: THIAMINE HCL 100 MG TABLET PO SCH (08:09)
[2019-09-29] MEDS: FOLIC ACID 1 MG TABLET PO SCH (08:09)
[2019-09-29] MEDS: GABAPENTIN 100 MG CAPSULE PO SCH ×3 (08:09→17:10)
[2019-09-29] MEDS: LevETIRAcetam 250 MG TABLET PO SCH ×2 (08:09→17:10)
[2019-09-29] MEDS: INSULIN GLARGINE,HUM.REC.ANLOG 100 UNITS/ML SQ SCH ×2 (08:20→18:24)
[2019-09-29 09:11] VITALS: BP 118/82
[2019-09-29] MEDS: INSULIN LISPRO 100 UNITS/ML SQ PRN ×3 (12:21→20:59)
[2019-09-29 12:28] LABS: GLUCOMETER DEV NAME(LOC) 3E.C; GLUCOSE,POINT OF CARE 145 MG/DL (70-110)
[2019-09-29 16:48] VITALS: BP 119/77
[2019-09-29 17:55] LABS: GLUCOMETER DEV NAME(LOC) 3E.C; GLUCOSE,POINT OF CARE 258 MG/DL (70-110)
[2019-09-29] MEDS: MIRTAZAPINE 15 MG TABLET PO SCH (20:35)
[2019-09-29] MEDS: TraZODone HCL 100 MG TABLET PO SCH (20:35)
[2019-09-29 20:57] LABS: GLUCOMETER DEV NAME(LOC) 3E.C; GLUCOSE,POINT OF CARE 221 MG/DL (70-110)
[2019-09-30 01:33] VITALS: BP 129/96
[2019-09-30 05:39] LABS: GLUCOMETER DEV NAME(LOC) 3E.C; GLUCOSE,POINT OF CARE 193 MG/DL (70-110)
[2019-09-30] MEDS ORDERED: LORazepam 1 MG TABLET PO PRN (07:00)
[2019-09-30] MEDS: MetFORMIN HCL 500 MG TABLET PO SCH ×2 (07:03→17:28)
[2019-09-30] MEDS: INSULIN LISPRO 100 UNITS/ML SQ PRN ×3 (07:07→17:15)
[2019-09-30 08:00] VITALS: BP 145/90
[2019-09-30] MEDS: GABAPENTIN 100 MG CAPSULE PO SCH ×3 (08:15→16:34)
[2019-09-30] MEDS: THIAMINE HCL 100 MG TABLET PO SCH (08:16)
[2019-09-30] MEDS: LevETIRAcetam 250 MG TABLET PO SCH ×2 (08:16→16:34)
[2019-09-30] MEDS: FOLIC ACID 1 MG TABLET PO SCH (08:16)
[2019-09-30] MEDS: LORazepam 1 MG TABLET PO SCH ×4 (08:17→21:21)
[2019-09-30] MEDS: INSULIN GLARGINE,HUM.REC.ANLOG 100 UNITS/ML SQ SCH ×2 (09:13→17:14)
[2019-09-30 12:02] LABS: GLUCOMETER DEV NAME(LOC) 3E.C; GLUCOSE,POINT OF CARE 279 MG/DL (70-110)
[2019-09-30 16:12] VITALS: BP 126/74
[2019-09-30 16:27] LABS: GLUCOMETER DEV NAME(LOC) 3EX.; GLUCOSE,POINT OF CARE 186 MG/DL (70-110)
[2019-09-30 18:42] VITALS: BP 128/79
[2019-09-30] MEDS ORDERED: ONDANSETRON HCL 4 MG/2 ML VIAL IM PRN ×2 (19:00→21:00)
[2019-09-30 20:07] VITALS: BP 123/81
[2019-09-30 20:53] LABS: GLUCOMETER DEV NAME(LOC) 3EX.; GLUCOSE,POINT OF CARE 68 MG/DL (70-110)
[2019-09-30 20:53] LABS: GLUCOMETER DEV NAME(LOC) 3EX.; GLUCOSE,POINT OF CARE 39 MG/DL (70-110)
[2019-09-30] MEDS ORDERED: METOCLOPRAMIDE HCL 5 MG TABLET PO PRN (21:00)
[2019-09-30] MEDS: TraZODone HCL 100 MG TABLET PO SCH (21:22)
[2019-09-30] MEDS: MIRTAZAPINE 15 MG TABLET PO SCH (21:22)
[2019-10-01 04:21] VITALS: BP 114/72
[2019-10-01 05:30] LABS: GLUCOMETER DEV NAME(LOC) 3EX.; GLUCOSE,POINT OF CARE 180 MG/DL (70-110)
[2019-10-01] MEDS: MetFORMIN HCL 500 MG TABLET PO SCH (06:58)
[2019-10-01] MEDS ORDERED: LORazepam 1 MG TABLET PO PRN (07:00)
[2019-10-01 08:00] VITALS: BP 138/94
[2019-10-01] MEDS: LevETIRAcetam 250 MG TABLET PO SCH (08:37)
[2019-10-01] MEDS: INSULIN GLARGINE,HUM.REC.ANLOG 100 UNITS/ML SQ SCH (08:38)
[2019-10-01] MEDS: FOLIC ACID 1 MG TABLET PO SCH (08:41)
[2019-10-01] MEDS: GABAPENTIN 100 MG CAPSULE PO SCH ×2 (08:41→13:00)
[2019-10-01] MEDS: THIAMINE HCL 100 MG TABLET PO SCH (08:41)
[2019-10-01] MEDS: LORazepam 2 MG TABLET PO PRN (09:04)
[2019-10-01 09:42] VITALS: BP 138/94
[2019-10-01 09:43] VITALS: BP 138/94
[2019-10-01] MEDS ORDERED: NALTREXONE HCL 50 MG TABLET PO SCH (11:00)
[2019-10-01 11:12] LABS: GLUCOMETER DEV NAME(LOC) 3EX.; GLUCOSE,POINT OF CARE 190 MG/DL (70-110)
[2019-10-01] MEDS ORDERED: TRAZ-220 PO (12:03)
== END 2019-10-01 13:00 | disposition home or self-care (01) | DRG 885 ==
LOC: EMS 17:49 → 3EC 09-27 02:30 → 3EI 09-30 14:25
PROVIDERS: ADMIT Psychiatry & Neurology Psychiatry; ATTEND Psychiatry & Neurology Psychiatry
DX: F33.2 Major depressive disorder, recurrent severe without psychotic features (principal); K86.1 Other chronic pancreatitis; R45.851 Suicidal ideations; D64.9 Anemia, unspecified; E11.9 Type 2 diabetes mellitus without complications; E78.5 Hyperlipidemia, unspecified; F10.20 Alcohol dependence, uncomplicated; F43.10 Post-traumatic stress disorder, unspecified; G40.909 Epilepsy, unspecified, not intractable, without status epilepticus; Z96.649 Presence of unspecified artificial hip joint; Z59.0 Homelessness; Z79.899 Other long term (current) drug therapy; Z91.19 Patient's noncompliance with other medical treatment and regimen; Z91.5 Personal history of self-harm; Z91.018 Allergy to other foods; Z90.49 Acquired absence of other specified parts of digestive tract; Z71.41 Alcohol abuse counseling and surveillance of alcoholic
CPT/HCPCS: 70450; 83036; 87081; 93005; G0480; J1815; J2405; Q0162

== ENCOUNTER 2019-10-01 21:04 | Emergency (ER) | payer OTHER ==
[~2019-10-01] VITALS: Ht 165.1 cm; Wt 75.0 kg
[~2019-10-01 21:04] MED LIST changes: +DIAZ2 PO; +INSU100C14 SQ; +QUET50TA PO; +SERT100T12 PO; +TRAZ-252 PO
[2019-10-01] MEDS ORDERED: LORazepam 2 MG TABLET PO PRN (22:00)
[2019-10-01] MEDS ORDERED: ZOLPIDEM TARTRATE 10 MG TABLET PO PRN (22:00)
[2019-10-01] MEDS ORDERED: BACITRACIN 0.9 GM PACKET OINTMENT TP ONE (22:00)
[2019-10-01] MEDS ORDERED: HALOPERIDOL 5 MG TABLET PO PRN (22:00)
[2019-10-01 22:23] LABS: EOSINOPHILS % (AUTO) 0.1 % (1.0-6.0); LYMPHOCYTES # (AUTO) 3.1 K/uL (1.0-4.8); MONOCYTES # (AUTO) 0.3 K/uL (0.1-1.0); MONOCYTES % (AUTO) 3.8 % (2.0-9.0)
[2019-10-01 22:26] LABS: BASOPHILS % (AUTO) 0.2 % (0.0-2.0); HEMATOCRIT 45.8 % (41-53); HEMOGLOBIN 15.2 g/dL (13.5-17.5); LYMPHOCYTES % (AUTO) 38.7 % (22.0-44.0); MEAN CORPUSCULAR HGB CONC 33.1 G/dL (31.0-37.0); MEAN CORPUSCULAR VOLUME 76 fL (80-100); NEUTROPHILS # (AUTO) 4.6 K/uL (1.8-7.7); NEUTROPHILS % (AUTO) 57.2 % (40.0-70.0); PLATELET COUNT (AUTO) 372 K/uL (150-450); RED BLOOD CELL COUNT(AUTO) 6.06 MIL/uL (4.50-5.90)
[2019-10-01 22:33] LABS: ANION GAP 12 mmol/L (8-16); CALCIUM, TOTAL 9.2 mg/dL (8.8-10.5); CARBON DIOXIDE 24 mmol/L (22-29); CHLORIDE 102 mmol/L (98-107); CREATININE 0.82 mg/dL (0.60-1.30); GLOMERULAR FILTR. RATE CALC > 60 mL/min (>60); GLUCOSE,RANDOM 159 mg/dL (70-110); SODIUM SERUM 138 mmol/L (136-145); UREA NITROGEN, BLOOD 6 mg/dL (7-18)
[2019-10-01 22:39] LABS: ALANINE AMINOTRANSFERASE 73 U/L (12-78); ALBUMIN 4.3 g/dL (3.4-5.0); ALKALINE PHOSPHATASE 491 U/L (46-116); ASPARTATE AMINOTRANSFERASE 133 U/L (15-37); BILIRUBIN,TOTAL 0.3 mg/dL (0.1-1.0); TOTAL PROTEIN, SERUM 9.9 g/dL (6.4-8.2)
[2019-10-01] MEDS ORDERED: HALOPERIDOL LACTATE 5 MG/ML VIAL IM ONE (23:00)
[2019-10-01] MEDS ORDERED: DiphenhydrAMINE HCL 50 MG/ML VIAL IM ONE (23:00)
[2019-10-01] MEDS ORDERED: LORazepam 2 MG/ML VIAL IM ONE (23:00)
[2019-10-01 23:08] LABS: AMPHET/METH SCREEN,URINE NEGATIVE (NEGATIVE); BARBITURATE SCREEN, URINE NEGATIVE (NEGATIVE); BENZODIAZEPINES SCREEN,URINE NEGATIVE (NEGATIVE); CANNABINOID SCREEN,URINE NEGATIVE (NEGATIVE); COCAINE SCREEN,URINE NEGATIVE (NEGATIVE); METHADONE SCREEN, URINE NEGATIVE (NEGATIVE); OPIATE SCREEN,URINE NEGATIVE (NEGATIVE); PHENCYCLIDINE SCREEN,URINE NEGATIVE (NEGATIVE)
[2019-10-02 01:25] LABS: GLUCOSE,POINT OF CARE 75 MG/DL (70-110)
[2019-10-02 04:45] LABS: GLUCOSE,POINT OF CARE 162 MG/DL (70-110)
[2019-10-02] MEDS ORDERED: BACITRACIN 0.9 GM PACKET OINTMENT TP ONE (09:30)
[2019-10-02 09:52] VITALS: BP 119/84
== END 2019-10-02 10:14 | disposition home or self-care (01) ==
LOC: EMS 21:06
DX: F69 Unspecified disorder of adult personality and behavior (principal); R41.82 Altered mental status, unspecified; F25.9 Schizoaffective disorder, unspecified; F10.129 Alcohol abuse with intoxication, unspecified; K70.30 Alcoholic cirrhosis of liver without ascites; F31.9 Bipolar disorder, unspecified; E11.9 Type 2 diabetes mellitus without complications; Z90.89 Acquired absence of other organs; Z91.018 Allergy to other foods; Z79.4 Long term (current) use of insulin; Y90.8 Blood alcohol level of 240 mg/100 ml or more
CPT/HCPCS: 36415; 80053; 80307; 82962; 85025; 99285; G0480

== ENCOUNTER 2019-10-03 09:53 | Emergency (ER) | payer OTHER ==
[~2019-10-03] VITALS: Ht 157.5 cm; Wt 65.9 kg
[~2019-10-03 09:53] MED LIST changes: -DIAZ2 PO; -INSU100C14 SQ; -METH500T7 PO; -MULT-1203 PO; -QUET50TA PO; -SERT100T12 PO; -THIA100T75 PO; -TRAZ-252 PO
[2019-10-03 11:18] LABS: BASOPHILS % (AUTO) 0.3 % (0.0-2.0); EOSINOPHILS % (AUTO) 0.1 % (1.0-6.0); HEMOGLOBIN 14.3 g/dL (13.5-17.5); LYMPHOCYTES # (AUTO) 2.5 K/uL (1.0-4.8); LYMPHOCYTES % (AUTO) 25.9 % (22.0-44.0); MEAN CORPUSCULAR HEMOGLOBIN 24.6 pg (26.0-34.0); MEAN CORPUSCULAR HGB CONC 32.5 G/dL (31.0-37.0); MEAN CORPUSCULAR VOLUME 76 fL (80-100); MONOCYTES # (AUTO) 0.2 K/uL (0.1-1.0); MONOCYTES % (AUTO) 2.3 % (2.0-9.0); NEUTROPHILS # (AUTO) 6.9 K/uL (1.8-7.7); NEUTROPHILS % (AUTO) 71.4 % (40.0-70.0); PLATELET COUNT (AUTO) 394 K/uL (150-450); RED BLOOD CELL COUNT(AUTO) 5.81 MIL/uL (4.50-5.90); RED CELL DISTRIBUTION WIDTH 18.9 % (11.5-14.5)
[2019-10-03 11:24] LABS: AMPHET/METH SCREEN,URINE NEGATIVE (NEGATIVE); BARBITURATE SCREEN, URINE NEGATIVE (NEGATIVE); BENZODIAZEPINES SCREEN,URINE NEGATIVE (NEGATIVE); CANNABINOID SCREEN,URINE NEGATIVE (NEGATIVE); COCAINE SCREEN,URINE NEGATIVE (NEGATIVE); METHADONE SCREEN, URINE NEGATIVE (NEGATIVE); OPIATE SCREEN,URINE NEGATIVE (NEGATIVE)
[2019-10-03 11:25] LABS: PHENCYCLIDINE SCREEN,URINE NEGATIVE (NEGATIVE)
[2019-10-03 11:27] LABS: ANION GAP 16 mmol/L (8-16); CALCIUM, TOTAL 8.1 mg/dL (8.8-10.5); CARBON DIOXIDE 23 mmol/L (22-29); CHLORIDE 107 mmol/L (98-107); CREATININE 1.11 mg/dL (0.60-1.30); GLOMERULAR FILTR. RATE CALC > 60 mL/min (>60); GLUCOSE,RANDOM 143 mg/dL (70-110); SODIUM SERUM 146 mmol/L (136-145); UREA NITROGEN, BLOOD 12 mg/dL (7-18)
[2019-10-03 11:33] LABS: ALANINE AMINOTRANSFERASE 185 U/L (12-78); ALBUMIN 3.4 g/dL (3.4-5.0); ALKALINE PHOSPHATASE 739 U/L (46-116); ASPARTATE AMINOTRANSFERASE 315 U/L (15-37); BILIRUBIN,TOTAL 0.2 mg/dL (0.1-1.0); LIPASE 18 U/L (73-393)
[2019-10-03 11:53] LABS: PROTHROMBIN TIME 10.6 SEC (9.4-11.6)
[2019-10-03 13:22] VITALS: BP 127/89
== END 2019-10-03 13:28 | disposition home or self-care (01) ==
LOC: EMS 09:54
DX: K52.9 Noninfective gastroenteritis and colitis, unspecified (principal); F10.129 Alcohol abuse with intoxication, unspecified; F31.9 Bipolar disorder, unspecified; E11.9 Type 2 diabetes mellitus without complications; F20.9 Schizophrenia, unspecified; Z90.89 Acquired absence of other organs; Z79.4 Long term (current) use of insulin; Z79.84 Long term (current) use of oral hypoglycemic drugs; Z91.018 Allergy to other foods; Z79.899 Other long term (current) drug therapy; Y90.8 Blood alcohol level of 240 mg/100 ml or more
CPT/HCPCS: 36415; 70450; 74176; 80053; 80307; 82962; 83690; 85025; 85610; 99284; G0480